=== PATIENT | male | born 1960 | race American Indian/Alaskan Native ===

== ENCOUNTER 2017-11-21 05:43 | Emergency (ER) | payer OTHER ==
[2017-11-21] MEDS ORDERED: ASPIRIN PO ONE (05:58)
[2017-11-21 07:15] LABS: Alanine Aminotransferase 13 units/L (7-56); BUN/Creatinine Ratio 18; Blood Urea Nitrogen 18 mg/dL (9-20); Calcium 8.4 mg/dL (8.4-10.2); Hemolysis Index 46
[2017-11-21 07:27] LABS: Lipase 72 units/L (13-60)
[2017-11-21 08:33] LABS: Basophils % (Auto) 0.4 % (0.0-1.8); Hematocrit 41.6 % (35.5-45.6); Hemoglobin 13.7 gm/dl (11.8-15.2); Lymphocytes # (Auto) 0.8 K/mm3 (1.2-5.4); Lymphocytes % (Auto) 8.7 % (13.4-35.0); Mean Corpuscular HGB Conc 33 % (32-34); Mean Corpuscular Hemoglobin 30 pg (28-32); Mean Corpuscular Volume 92 fl (84-94); Monocytes % (Auto) 11.4 % (0.0-7.3); Platelet Count 219 K/mm3 (140-440); Red Blood Count 4.52 M/mm3 (3.65-5.03); Red Cell Distribution Width 14.7 % (13.2-15.2)
[2017-11-21] MEDS ORDERED: ZOFRAN IV ONE (09:41)
[2017-11-21] MEDS ORDERED: NORMODYNE IV ONE (09:41)
[2017-11-21] MEDS ORDERED: BENADRYL IV ONE (09:41)
[2017-11-21] MEDS ORDERED: THORAZINE 25 MG in NACL 0.9% 50 ML IV ONE (09:41)
[2017-11-21] MEDS ORDERED: NACL 0.9% 1000 ML 1,000 ML IV ONE ×2 (09:41→14:51)
[2017-11-21] MEDS ORDERED: MORPHINE IV ONE (09:44)
--- NOTE | 2017-11-21 09:56 | Emergency Department Report ---
ED Abdominal Pain HPI - General Chief Complaint: Chest Pain Stated Complaint: HICCUPS Time Seen by Provider: 11/21/17 09:26 Source: patient Mode of arrival: Ambulatory Limitations: No Limitations - History of Present Illness Initial Comments: 57-year-old male with a past history of hypertension and chronic hiccups a history of phrenic nerve surgery presents to the hospital with complaints of persistent hiccups, nausea, vomiting, no bowel movement or urine output 1 week. He states he had phrenic nerve surgery 5 years ago in attempt to help his chronic hiccups. Instead this surgery made his hiccups worse. Patient has episodes of intractable hiccups with by mouth intolerance last nausea vomiting and has required hospital admission for the same in the past. For the one week patient has not been able to tolerate any by mouth intake including his medications a presents with elevated blood pressure. Patient complains of epigastric and abdominal pains. Has episodes of belching and has intermittent hiccups in the ED. His Doctors are [facility]. - Related Data Previous Rx's Medication Instructions Recorded Last Taken Type oxyCODONE /ACETAMINOPHEN [Percocet 1 tab PO Q6HR PRN #10 tablet 11/21/17 Unknown Rx 5/325] Allergies Allergy/AdvReac Type Severity Reaction Status Date / Time peanut Allergy Unknown Verified 11/21/17 05:57 ED Review of Systems ROS: Stated complaint: HICCUPS Other details as noted in HPI Comment: All other systems reviewed and negative ED Past Medical Hx - Past Medical History Previous Medical History?: Yes Hx Renal Disease: Yes (kindney failure) Hx Psychiatric Treatment: Yes (SI) Additional medical history: cardiac prob. hep A - Surgical History Past Surgical History?: Yes Additional Surgical History: cardiac stent x1. right ankle screws. phrenic nerve - Social History Smoking Status: Never Smoker Substance Use Type: Marijuana - Medications Home Medications: Home Medications Medication Instructions Recorded Confirmed Last Taken Type oxyCODONE /ACETAMINOPHEN [Percocet 1 tab PO Q6HR PRN #10 tablet 11/21/17 Unknown Rx 5/325] ED Physical Exam - General Limitations: No Limitations - Other Other exam information: General: No limitations, patient is alert in no acute distress Head exam: Atraumatic, normocephalic Eyes exam: Normal appearance ENT: Moist mucous membrane, normal oropharynx Neck exam: Normal inspection, full range of motion, no meningismus nontender Respiratory exam: Clear to auscultation bilateral, no wheezes, rales, crackles Cardiovascular: Normal rate and rhythm, normal heart sounds Abdomen: Soft, nondistended, epigastric tenderness, with normal bowel sounds, no rebound, or guarding Extremity: Full range of motion normal inspection no deformity Back: Normal Inspection, full range of motion, no tenderness Neurologic: Alert, oriented x3, cranial nerves intact, no motor or sensory deficit Psychiatric: normal affect, normal mood Skin: Warm, dry, intact ED Course Vital Signs 11/21/17 11/21/17 11/21/17 05:59 07:52 08:01 Temperature 98.6 F Pulse Rate 99 H 74 Respiratory 20 13 Rate Blood Pressure 204/118 Blood Pressure [Right] O2 Sat by Pulse 96 98 100 Oximetry 11/21/17 11/21/17 11/21/17 08:15 08:31 08:45 Temperature Pulse Rate 87 80 82 Respiratory 12 16 19 Rate Blood Pressure 173/100 201/105 190/108 Blood Pressure [Right] O2 Sat by Pulse 96 97 98 Oximetry 11/21/17 11/21/17 11/21/17 09:01 09:15 09:31 Temperature Pulse Rate 80 81 76 Respiratory 16 21 20 Rate Blood Pressure 165/101 182/104 179/110 Blood Pressure [Right] O2 Sat by Pulse 94 98 96 Oximetry 11/21/17 11/21/17 11/21/17 09:45 10:01 10:15 Temperature Pulse Rate 86 89 80 Respiratory 18 23 19 Rate Blood Pressure 179/110 191/110 180/104 Blood Pressure [Right] O2 Sat by Pulse 96 98 97 Oximetry 11/21/17 11/21/17 11/21/17 10:31 10:45 11:00 Temperature Pulse Rate 74 76 82 Respiratory 10 L 13 10 L Rate Blood Pressure 173/104 191/110 180/109 Blood Pressure [Right] O2 Sat by Pulse 94 99 97 Oximetry 11/21/17 11/21/17 11/21/17 11:15 11:30 11:45 Temperature Pulse Rate 70 69 68 Respiratory 10 L 14 11 L Rate Blood Pressure 180/109 172/97 172/97 Blood Pressure [Right] O2 Sat by Pulse 98 97 97 Oximetry 11/21/17 11/21/17 11/21/17 12:01 12:15 12:31 Temperature Pulse Rate 78 82 94 H Respiratory 20 12 12 Rate Blood Pressure 134/95 134/95 209/121 Blood Pressure [Right] O2 Sat by Pulse 97 100 87 Oximetry 11/21/17 11/21/17 11/21/17 12:45 13:00 13:47 Temperature Pulse Rate 66 78 80 Respiratory 12 12 10 L Rate Blood Pressure 185/108 167/94 Blood Pressure [Right] O2 Sat by Pulse 98 97 98 Oximetry 11/21/17 11/21/17 11/21/17 14:01 14:15 14:31 Temperature Pulse Rate 89 107 H 83 Respiratory 12 13 13 Rate Blood Pressure 167/94 167/94 167/94 Blood Pressure [Right] O2 Sat by Pulse 97 Oximetry 11/21/17 11/21/17 11/21/17 14:45 15:01 15:15 Temperature Pulse Rate 95 H 98 H 89 Respiratory 19 13 10 L Rate Blood Pressure 167/94 167/94 167/94 Blood Pressure [Right] O2 Sat by Pulse 75 L 86 96 Oximetry 11/21/17 11/21/17 11/21/17 15:30 15:45 16:00 Temperature Pulse Rate 61 68 75 Respiratory 12 9 L 10 L Rate Blood Pressure 202/106 Blood Pressure [Right] O2 Sat by Pulse 97 97 99 Oximetry 11/21/17 11/21/17 11/21/17 16:15 16:30 16:45 Temperature Pulse Rate 72 74 83 Respiratory 12 11 L 12 Rate Blood Pressure 186/99 190/104 204/107 Blood Pressure [Right] O2 Sat by Pulse 99 98 96 Oximetry 11/21/17 11/21/17 11/21/17 17:00 17:15 17:30 Temperature Pulse Rate 81 85 91 H Respiratory 12 15 11 L Rate Blood Pressure 183/99 165/96 167/117 Blood Pressure [Right] O2 Sat by Pulse 98 98 97 Oximetry 11/21/17 11/21/17 11/21/17 17:45 18:00 18:15 Temperature Pulse Rate 78 81 83 Respiratory 13 13 12 Rate Blood Pressure 162/95 139/103 139/103 Blood Pressure [Right] O2 Sat by Pulse 97 98 95 Oximetry 11/21/17 11/21/17 11/21/17 18:30 18:45 19:01 Temperature Pulse Rate 87 99 H 91 H Respiratory 13 17 16 Rate Blood Pressure 163/103 180/108 164/116 Blood Pressure [Right] O2 Sat by Pulse 96 97 Oximetry 11/21/17 11/21/17 11/21/17 19:15 19:30 19:45 Temperature Pulse Rate 96 H 93 H 73 Respiratory 17 15 14 Rate Blood Pressure 164/116 193/111 175/109 Blood Pressure [Right] O2 Sat by Pulse 94 90 99 Oximetry 11/21/17 11/21/17 19:54 20:19 Temperature 98.7 F Pulse Rate 85 Respiratory 20 20 Rate Blood Pressure Blood Pressure 165/98 [Right] O2 Sat by Pulse 98 98 Oximetry ED Medical Decision Making - Lab Data Result diagrams: 11/21/17 08:18 11/21/17 06:03 Lab Results 11/21/17 11/21/17 11/21/17 Range/Units 06:03 08:18 08:18 WBC 9.1 (4.5-11.0) K/mm3 RBC 4.52 (3.65-5.03) M/mm3 Hgb 13.7 (11.8-15.2) gm/dl Hct 41.6 (35.5-45.6) % MCV 92 (84-94) fl MCH 30 (28-32) pg MCHC 33 (32-34) % RDW 14.7 (13.2-15.2) % Plt Count 219 (140-440) K/mm3 Lymph % (Auto) 8.7 L (13.4-35.0) % [place] % (Auto) 11.4 H (0.0-7.3) % Eos % (Auto) 0.0 (0.0-4.3) % Baso % (Auto) 0.4 (0.0-1.8) % Lymph # 0.8 L (1.2-5.4) K/mm3 [place] # 1.0 H (0.0-0.8) K/mm3 Eos # 0.0 (0.0-0.4) K/mm3 Baso # 0.0 (0.0-0.1) K/mm3 Seg Neutrophils % 79.5 H (40.0-70.0) % Seg Neutrophils # 7.2 (1.8-7.7) K/mm3 Sodium 131 L (137-145) mmol/L Potassium 2.9 L* (3.6-5.0) mmol/L Chloride 85.2 L (98-107) mmol/L Carbon Dioxide 27 (22-30) mmol/L Anion Gap 22 mmol/L BUN 18 (9-20) mg/dL Creatinine 1.0 (0.8-1.5) mg/dL Estimated GFR > 60 ml/min BUN/Creatinine Ratio 18 % Glucose 166 H (75-100) mg/dL Calcium 8.4 (8.4-10.2) mg/dL Magnesium (1.7-2.3) mg/dL Total Bilirubin 1.90 H (0.1-1.2) mg/dL AST 35 (5-40) units/L ALT 13 (7-56) units/L Alkaline Phosphatase 121 (35-129) units/L Troponin T < 0.010 < 0.010 (0.00-0.029) ng/mL Total Protein 7.8 (6.3-8.2) g/dL Albumin 4.0 (3.9-5) g/dL Albumin/Globulin Ratio 1.1 % Lipase 72 H (13-60) units/L Urine Color (Yellow) Urine Turbidity (Clear) Urine pH (5.0-7.0) Ur Specific [place] (1.003-1.030) Urine Protein (Negative) mg/dL Urine Glucose (UA) (Negative) mg/dL Urine Ketones (Negative) mg/dL Urine Blood (Negative) Urine Nitrite (Negative) Urine Bilirubin (Negative) Urine Urobilinogen (<2.0) mg/dL Ur Leukocyte Esterase (Negative) Urine WBC (Auto) (0.0-6.0) /HPF Urine RBC (Auto) (0.0-6.0) /HPF U Epithel Cells (Auto) (0-13.0) /HPF Urine Mucus /HPF 11/21/17 11/21/17 11/21/17 Range/Units 08:18 12:00 13:57 WBC (4.5-11.0) K/mm3 RBC (3.65-5.03) M/mm3 Hgb (11.8-15.2) gm/dl Hct (35.5-45.6) % MCV (84-94) fl MCH (28-32) pg MCHC (32-34) % RDW (13.2-15.2) % Plt Count (140-440) K/mm3 Lymph % (Auto) (13.4-35.0) % [place] % (Auto) (0.0-7.3) % Eos % (Auto) (0.0-4.3) % Baso % (Auto) (0.0-1.8) % Lymph # (1.2-5.4) K/mm3 [place] # (0.0-0.8) K/mm3 Eos # (0.0-0.4) K/mm3 Baso # (0.0-0.1) K/mm3 Seg Neutrophils % (40.0-70.0) % Seg Neutrophils # (1.8-7.7) K/mm3 Sodium (137-145) mmol/L Potassium (3.6-5.0) mmol/L Chloride (98-107) mmol/L Carbon Dioxide (22-30) mmol/L Anion Gap mmol/L BUN (9-20) mg/dL Creatinine (0.8-1.5) mg/dL Estimated GFR ml/min BUN/Creatinine Ratio % Glucose (75-100) mg/dL Calcium (8.4-10.2) mg/dL Magnesium 1.50 L (1.7-2.3) mg/dL Total Bilirubin (0.1-1.2) mg/dL AST (5-40) units/L ALT (7-56) units/L Alkaline Phosphatase (35-129) units/L Troponin T < 0.010 (0.00-0.029) ng/mL Total Protein (6.3-8.2) g/dL Albumin (3.9-5) g/dL Albumin/Globulin Ratio % Lipase (13-60) units/L Urine Color [place] (Yellow) Urine Turbidity Clear (Clear) Urine pH 6.0 (5.0-7.0) Ur Specific [place] 1.032 H (1.003-1.030) Urine Protein 100 mg/dl (Negative) mg/dL Urine Glucose (UA) Neg (Negative) mg/dL Urine Ketones Tr (Negative) mg/dL Urine Blood Mod (Negative) Urine Nitrite Neg (Negative) Urine Bilirubin Neg (Negative) Urine Urobilinogen 4.0 (<2.0) mg/dL Ur Leukocyte Esterase Neg (Negative) Urine WBC (Auto) 2.0 (0.0-6.0) /HPF Urine RBC (Auto) 5.0 (0.0-6.0) /HPF U Epithel Cells (Auto) < 1.0 (0-13.0) /HPF Urine Mucus Few /HPF - EKG Data -: EKG Interpreted by Me (multiple premature complexes prolonged QT) EKG shows normal: sinus rhythm, axis (qrs 80), QRS complexes (qrsd 81), ST-T waves (no stemi/t inv) Rate: normal - EKG Data When compared to previous EKG there are: changes noted (08/28/10) - Radiology Data Radiology results: report reviewed CT ABDOMEN AND PELVIS WITH CONTRAST INDICATION: Abdominal pain, intractable hiccups, vomiting. COMPARISON: None similar. FINDINGS: Abdomen and pelvis CT performed following intravenous administration of 100 cc of Omnipaque 300. LUNG BASES: Mild to moderate nonspecific distal esophageal wall prominence/thickening, not excluded for gastroesophageal reflux and/or hiatal hernia, amongst others. Few coronary calcifications. ABDOMEN: Liver, spleen, gallbladder, pancreas, adrenals, nonaneurysmal abdominal aorta with atherosclerotic aortoiliac calcifications, IVC and kidneys within normal limits. Small bilateral renal cortical hypodensities/cysts measure up to 0.8 cm. No abdominal ascites or size significant adenopathy. Nonopacified GI tract evaluation limited, though grossly nonobstructive. Normal appendix. PELVIS: Small pelvic free fluid measuring 25HU as on axial image 139, series 2. Urinary bladder decompressed by Rivera catheter and suboptimally assessed. Unremarkable rectosigmoid. No size significant adenopathy. Slight mid to lower lumbar spine degenerative changes without focal aggressive osseous lesions. CONCLUSION: 1. Small pelvic free fluid, an abnormal finding in a male patient, etiology uncertain. 2. Few other findings as distal esophageal thickening, small bilateral renal hypodensities and a Rivera catheter. Thank you for the opportunity to participate in this patient's care. - Medical Decision Making Nausea vomiting with associated electrolyte and EKG changes. 2 Liter normal saline for low sodium and chloride, IV potassium IV magnesium provided. IV labetalol for hypertension secondary to medication noncompliance. Case discussed with hospitalist to consider admission and will dispo. - Differential Diagnosis intractable hiccups, obstruction, dehydration, GERD Critical Care Time: No Critical care attestation.: If time is entered above; I have spent that time in minutes in the direct care of this critically ill patient, excluding procedure time. ED Disposition Clinical Impression: Chronic hiccoughs, Vomiting, HTN (hypertension), Hyponatremia, Hypokalemia, Hypomagnesemia Disposition: OP ADMIT IP TO THIS HOSP Is pt being admited?: Yes Condition: Stable Prescriptions: oxyCODONE /ACETAMINOPHEN [Percocet 5/325] 1 tab PO Q6HR PRN #10 tablet PRN Reason: Pain Time of Disposition: 16:15 (d/w Dr Araiza to dispo pt and determin if admission is needed)
[2017-11-21] MEDS: KCL 10MEQ/100ML 10 MEQ/100 ML BAG IV SCH ×2 (10:22→13:18)
[2017-11-21] MEDS ORDERED: MAGNESIUM SULFATE 2GM/50ML 2 GM/50 ML BAG IV ONE (11:54)
[2017-11-21 13:15] LABS: Bilirubin,Urine NEG (Negative); Blood,Urine MOD (Negative); Color,Urine Amber (Yellow); Mucus,Urine FEW /HPF
--- NOTE | 2017-11-21 14:31 | Cat Scan Report ---
CT ABDOMEN AND PELVIS WITH CONTRAST INDICATION: Abdominal pain, intractable hiccups, vomiting. COMPARISON: None similar. FINDINGS: Abdomen and pelvis CT performed following intravenous administration of 100 cc of Omnipaque 300. LUNG BASES: Mild to moderate nonspecific distal esophageal wall prominence/thickening, not excluded for gastroesophageal reflux and/or hiatal hernia, amongst others. Few coronary calcifications. ABDOMEN: Liver, spleen, gallbladder, pancreas, adrenals, nonaneurysmal abdominal aorta with atherosclerotic aortoiliac calcifications, IVC and kidneys within normal limits. Small bilateral renal cortical hypodensities/cysts measure up to 0.8 cm. No abdominal ascites or size significant adenopathy. Nonopacified GI tract evaluation limited, though grossly nonobstructive. Normal appendix. PELVIS: Small pelvic free fluid measuring 25HU as on axial image 139, series 2. Urinary bladder decompressed by Rivera catheter and suboptimally assessed. Unremarkable rectosigmoid. No size significant adenopathy. Slight mid to lower lumbar spine degenerative changes without focal aggressive osseous lesions. CONCLUSION: 1. Small pelvic free fluid, an abnormal finding in a male patient, etiology uncertain. 2. Few other findings as distal esophageal thickening, small bilateral renal hypodensities and a Rivera catheter. Thank you for the opportunity to participate in this patient's care.
[2017-11-21] MEDS ORDERED: CATAPRES PO ONE (16:17)
[2017-11-21] MEDS ORDERED: CATAPRES ONE (18:41)
--- NOTE | 2017-11-21 19:01 | History and Physical Report ---
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 Pt seen and evaluated in ED and found to have electrolyte imbalance. Pt treated with electrolyte repletion, and IVF resuscitation therapy with resolution of symptoms. Pt medically optimized and back to usual state of health. Pt discharged home and instructed to f/u pcp 1 wk. Pt instructed to resume all prehospital medication. Past History Past Medical History: CAD Past Surgical History: Other (stent, ankle surgery) Social history: , lives with family. denies: smoking, alcohol abuse Family history: hypertension Medications and Allergies Allergies Allergy/AdvReac Type Severity Reaction Status Date / Time peanut Allergy Unknown Verified 11/21/17 05:57 Home Medications Medication Instructions Recorded Confirmed Last Taken Type oxyCODONE /ACETAMINOPHEN [Percocet 1 tab PO Q6HR PRN #10 tablet 11/21/17 Unknown Rx 5/325] Review of Systems Constitutional: other (hiccups, ), no weight loss, no weight gain, no fever, no chills Ears, nose, mouth and throat: no ear pain, no ear discharge, no tinnitis, no decreased hearing, no nose pain Cardiovascular: no chest pain, no orthopnea, no palpitations, no rapid/ irregular heart beat, no edema Respiratory: no cough, no cough with sputum, no excessive sputum, no hemoptysis , no shortness of breath Gastrointestinal: nausea, vomiting, no constipation, no change in bowel habits, no hematemesis, no BRBPR, no melena, no hematochezia, no loss of appetite Genitourinary Male: no hematuria, no flank pain, no discharge, no urinary frequency Rectal: no pain, no incontinence, no bleeding Musculoskeletal: no neck stiffness, no neck pain, no shooting arm pain, no arm numbness/tingling, no low back pain, no shooting leg pain, no leg numbness/ tingling Integumentary: no rash, no pruritis, no redness, no sores, no wounds Neurological: no transient paralysis, no paralysis, no weakness, no parathesias , no numbness, no tingling, no seizures Psychiatric: no anxiety, no memory loss, no change in sleep habits, no sleep disturbances, no insomnia, no hypersomnia Endocrine: no cold intolerance, no heat intolerance, no polyphagia, no excessive thirst, no polydipsia, no polyuria, no nocturia Hematologic/Lymphatic: no easy bruising, no easy bleeding, no lymphadenopathy, no lymphedema Allergic/Immunologic: no urticaria, no allergic rhinitis, no wheezing Exam - Constitutional Vitals: Temp Pulse Resp BP Pulse Ox 98.6 F 87 13 163/103 96 11/21/17 05:59 11/21/17 18:30 11/21/17 18:30 11/21/17 18:30 11/21/17 18:30 General appearance: Present: no acute distress, well-nourished - EENT Eyes: Present: PERRL ENT: hearing intact, clear oral mucosa - Neck Neck: Present: supple, normal ROM - Respiratory Respiratory effort: normal Respiratory: bilateral: CTA - Cardiovascular Heart Sounds: Present: S1 & S2. Absent: rub, click - Extremities Extremities: pulses symmetrical, No edema Peripheral Pulses: within normal limits - Abdominal General gastrointestinal: Present: soft, non-tender, non-distended, normal bowel sounds Male genitourinary: Present: normal - Integumentary Integumentary: Present: clear, warm, dry - Musculoskeletal Musculoskeletal: gait normal, strength equal bilaterally - Psychiatric Psychiatric: appropriate mood/affect, intact judgment & insight - Neurologic Neurologic: CNII-XII intact, moves all extremities Results - Labs CBC & Chem 7: 11/21/17 08:18 11/21/17 06:03 Labs: Abnormal lab results 11/21/17 11/21/17 11/21/17 Range/Units 06:03 08:18 08:18 Lymph % (Auto) 8.7 L (13.4-35.0) % [place] % (Auto) 11.4 H (0.0-7.3) % Lymph # 0.8 L (1.2-5.4) K/mm3 [place] # 1.0 H (0.0-0.8) K/mm3 Seg Neutrophils % 79.5 H (40.0-70.0) % Sodium 131 L (137-145) mmol/L Potassium 2.9 L* (3.6-5.0) mmol/L Chloride 85.2 L (98-107) mmol/L Glucose 166 H (75-100) mg/dL Magnesium 1.50 L (1.7-2.3) mg/dL Total Bilirubin 1.90 H (0.1-1.2) mg/dL Lipase 72 H (13-60) units/L Ur Specific [place] (1.003-1.030) // Range/Units 12:00 Lymph % (Auto) (13.4-35.0) % [place] % (Auto) (0.0-7.3) % Lymph # (1.2-5.4) K/mm3 [place] # (0.0-0.8) K/mm3 Seg Neutrophils % (40.0-70.0) % Sodium (137-145) mmol/L Potassium (3.6-5.0) mmol/L Chloride (98-107) mmol/L Glucose (75-100) mg/dL Magnesium (1.7-2.3) mg/dL Total Bilirubin (0.1-1.2) mg/dL Lipase (13-60) units/L Ur Specific [place] 1.032 H (1.003-1.030) Assessment and Plan - Patient Problems (1) Chronic hiccoughs Status: Acute Plan to address problem: supportive care. f/u pcp 1wk (2) Hypokalemia Status: Acute Plan to address problem: repleted in ED (3) Hypomagnesemia Status: Acute Plan to address problem: repleted in ED
[2017-11-21 20:19] VITALS: BP 165/98
== END 2017-11-21 20:15 | disposition admitted as inpatient to this hospital (09) ==
LOC: ED 05:43
DX: I10 Essential (primary) hypertension (principal); E87.1 Hypo-osmolality and hyponatremia; E83.42 Hypomagnesemia; E87.6 Hypokalemia; R06.6 Hiccough; F12.10 Cannabis abuse, uncomplicated; Z91.010 Allergy to peanuts
CPT/HCPCS: 36415; 74177; 80053; 81001; 83690; 83735; 84484; 85025; 93005; 93010; 96365; 96367; 96375; 99284; J2270; J2405; J3230; J3475; J3480; J7030; Q9967

== ENCOUNTER 2018-01-08 00:35 | Inpatient (IN) | payer OTHER ==
[2018-01-08 02:30] LABS: Eosinophils % (Auto) 1.4 % (0.0-4.3); Hemoglobin 11.7 gm/dl (11.8-15.2); Lymphocytes # (Auto) 0.9 K/mm3 (1.2-5.4); Lymphocytes % (Auto) 33.5 % (13.4-35.0); Mean Corpuscular HGB Conc 34 % (32-34); Mean Corpuscular Hemoglobin 31 pg (28-32); Mean Corpuscular Volume 92 fl (84-94); Monocytes # (Auto) 0.4 K/mm3 (0.0-0.8); Platelet Count 249 K/mm3 (140-440); Red Blood Count 3.81 M/mm3 (3.65-5.03); Red Cell Distribution Width 16.7 % (13.2-15.2)
[2018-01-08 02:34] LABS: Alanine Aminotransferase 9 units/L (7-56); Albumin 4.2 g/dL (3.9-5); BUN/Creatinine Ratio 16; Blood Urea Nitrogen 14 mg/dL (9-20); Calcium 8.4 mg/dL (8.4-10.2); Hemolysis Index 2
--- NOTE | 2018-01-08 02:58 | Emergency Department Report ---
ED Chest Pain HPI - General Chief Complaint: Syncope Stated Complaint: SYNCOPE Time Seen by Provider: 01/08/18 02:40 Source: patient Mode of arrival: Wheelchair Limitations: No Limitations - History of Present Illness Initial Comments: Patient 57-year-old male that presents with chest pain 1 day. Patient states he also had a syncopal episode earlier today. Patient states that the chest pain started after the syncopal episode. Patient states she has passed out many times. Patient states the chest pain is a 6 out of 10. Patient states that the pain is worse with exertion and is better with rest. Patient denies headache or confusion at this time. Patient denies shortness of breath. Patient denies abdominal pain. Patient denies diaphoresis and nausea and vomiting. Patient states that the chest pain started after the syncopal episode. Patient states she has passed out many times. Patient states his significant worked up many times and is secondary to his phrenic nerve disorder. 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 Patient states was episode only lasted a few seconds. Patient states she denied his head. MD Complaint: chest pain -: Sudden Onset: during rest Pain Location: substernal, left chest Pain Radiation: none Severity: severe Severity scale (0 -10): 6 Quality: heaviness, sharp Consistency: constant Improves With: rest Worsens With: exertion re: dyspnea. denies: nausea, vomting, diaphoresis, sense of impending doom Other Symptoms: burping. denies: cough, fever, syncope, rash, acid taste in mouth, leg swelling, palpitations Treatments Prior to Arrival: none Aspirin use within the Past 7 Days: (1) Yes - Related Data On Oral Contraceptives: No Previous Rx's Medication Instructions Recorded Last Taken Type oxyCODONE /ACETAMINOPHEN [Percocet 1 tab PO Q6HR PRN #10 tablet 11/21/17 Unknown Rx 5/325] Allergies Allergy/AdvReac Type Severity Reaction Status Date / Time peanut Allergy Unknown Verified 11/21/17 05:57 Heart Score - HEART Score History: Slightly suspicious EKG: Normal Age: 45-65 Risk factors: > 3 risk factors or hx of atherosclerotic disease Troponin: < normal limit HEART Score: 3 ED Review of Systems ROS: Stated complaint: SYNCOPE Other details as noted in HPI Constitutional: denies: chills, fever Eyes: denies: eye pain, eye discharge, vision change ENT: denies: ear pain, throat pain Respiratory: shortness of breath. denies: cough, wheezing Cardiovascular: chest pain. denies: palpitations Endocrine: no symptoms reported Gastrointestinal: denies: abdominal pain, nausea, diarrhea Genitourinary: denies: urgency, dysuria Musculoskeletal: denies: back pain, joint swelling, arthralgia Skin: denies: rash, lesions Neurological: denies: headache, weakness, paresthesias Psychiatric: denies: anxiety, depression Hematological/Lymphatic: denies: easy bleeding, easy bruising ED Past Medical Hx - Past Medical History Previous Medical History?: Yes Hx Hypertension: Yes Hx Heart Attack/AMI: Yes Hx GERD: Yes Hx Renal Disease: Yes (kindney failure) Hx Psychiatric Treatment: Yes (SI) Hx Asthma: Yes Additional medical history: cardiac prob. hep A, Sleep apnea - Surgical History Past Surgical History?: Yes Additional Surgical History: cardiac stent x1. right ankle screws. phrenic nerve - Social History Smoking Status: Former Smoker Substance Use Type: Alcohol, Marijuana - Medications Home Medications: Home Medications Medication Instructions Recorded Confirmed Last Taken Type oxyCODONE /ACETAMINOPHEN [Percocet 1 tab PO Q6HR PRN #10 tablet 11/21/17 Unknown Rx 5/325] ED Physical Exam - General Limitations: No Limitations General appearance: alert, in no apparent distress - Head Head exam: Present: atraumatic, normocephalic - Eye Eye exam: Present: normal appearance - ENT ENT exam: Present: mucous membranes moist - Neck Neck exam: Present: normal inspection - Respiratory Respiratory exam: Present: normal lung sounds bilaterally. Absent: respiratory distress - Cardiovascular Cardiovascular Exam: Present: regular rate, normal rhythm. Absent: systolic murmur, diastolic murmur, rubs, gallop - GI/Abdominal GI/Abdominal exam: Present: soft, normal bowel sounds - Rectal Rectal exam: Present: deferred - Extremities Exam Extremities exam: Present: normal inspection - Back Exam Back exam: Present: normal inspection - Neurological Exam Neurological exam: Present: alert, oriented X3 - Psychiatric Psychiatric exam: Present: normal affect, normal mood - Skin Skin exam: Present: warm, dry, intact, normal color. Absent: rash ED Course Vital Signs 01/08/18 01/08/18 01/08/18 00:36 00:58 02:45 Temperature 98.2 F 98.2 F Pulse Rate 71 87 88 Respiratory 14 16 Rate Blood Pressure 179/100 179/100 201/110 O2 Sat by Pulse 96 97 99 Oximetry 01/08/18 01/08/18 01/08/18 03:13 03:35 04:30 Temperature Pulse Rate 76 78 95 H Respiratory 22 Rate Blood Pressure 215/128 201/117 190/116 O2 Sat by Pulse 94 Oximetry 01/08/18 01/08/18 04:31 05:30 Temperature Pulse Rate 76 84 Respiratory 23 Rate Blood Pressure 214/124 160/92 O2 Sat by Pulse 93 Oximetry - Reevaluation(s) Reevaluation #1: patient resting in bed. Discussed results with patient. Blood pressure still elevated after 5 of Lopressor. We'll give patient hydralazine. 01/08/18 03:32 Reevaluation #2: Patient's blood pressure remains elevated. We'll give another 10 mg of hydralazine. And recheck. Discussed plan of care with patient. Patient agrees with plan of care and admission. We'll consult hospitalist for admission. 01/08/18 04:30 Blood pressure better. Patient admitted to the hospitalist service. 01/08/18 05:10 - Consultations Consultation #1: Hospitalist consulted for admission. Hospitalist given full report. Hospitalist agrees to admit. Hospitalist to assume care. 01/08/18 04:31 LUIS score - Luis Score Age > 65: (0) No Aspirin use within the Past 7 Days: (1) Yes 3 or more CAD Risk Factors: (0) No 2 or more Angina events in past 24 hrs: (1) Yes Known CAD with more than 50% Stenosis: (1) Yes Elevated Cardiac Markers: (0) No ST Deviation Greater than 0.5mm: (0) No LUIS Score: 3 ED Medical Decision Making - Lab Data Result diagrams: 01/08/18 01:40 01/08/18 01:40 - EKG Data -: EKG Interpreted by Me EKG shows normal: sinus rhythm, axis, intervals, QRS complexes, ST-T waves Rate: normal - EKG Data Interpretation: other (pac's noted. ) - Radiology Data Radiology results: report reviewed FINDINGS: Skull and scalp: Normal. Paranasal sinuses: Normal. Ventricles and subarachnoid spaces: There is mild central and cortical atrophy. There is no hydrocephalus or asymmetry.. Cerebrum: No evidence of hemorrhage, acute infarction or mass. There is chronic deep white matter ischemic gliosis. 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 Cerebellum and brainstem : No evidence of hemorrhage, acute infarction or mass. Vasculature: Normal. Comments: None. IMPRESSION: There are chronic involutional and ischemic changes. There is no hemorrhage, edema, mass, mass effect or midline shift. - Medical Decision Making Patient is a 57-year-old male presents to emergency room with chest pain shortness of breath 1 day. Patient is not hypoxic and not tachycardic. Patient's blood pressure is very high and given multiple doses of blood pressure medications. Patient will be admitted to the hospitalist service for further evaluation and treatment. - Differential Diagnosis cp. sob. acs. gerd. syncope Critical care attestation.: If time is entered above; I have spent that time in minutes in the direct care of this critically ill patient, excluding procedure time. ED Disposition Clinical Impression: Shortness of breath, Malignant hypertension Chest pain Qualifiers: Chest pain type: unspecified Qualified Code(s): R07.9 - Chest pain, unspecified Syncope Qualifiers: Syncope type: unspecified Qualified Code(s): R55 - Syncope and collapse Disposition: DC-09 OP ADMIT IP TO THIS HOSP Is pt being admited?: Yes Does the pt Need Aspirin: No Condition: Serious Time of Disposition: 04:29
[2018-01-08] MEDS ORDERED: LOPRESSOR IV ONE (03:03)
[2018-01-08] MEDS ORDERED: ASPIRIN ONE (03:18)
[2018-01-08] MEDS ORDERED: ASPIRIN PO ONE (03:20)
[2018-01-08] MEDS ORDERED: APRESOLINE ONE (03:30)
[2018-01-08] MEDS ORDERED: APRESOLINE IV ONE ×2 (03:31→04:24)
--- NOTE | 2018-01-08 04:21 | Cat Scan Report ---
FINAL REPORT PROCEDURE: CT HEAD/BRAIN WO CON TECHNIQUE: Computerized tomography of the head was performed without contrast material. HISTORY: syncope COMPARISON: No prior studies are available for comparison. FINDINGS: Skull and scalp: Normal. Paranasal sinuses: Normal. Ventricles and subarachnoid spaces: There is mild central and cortical atrophy. There is no hydrocephalus or asymmetry.. Cerebrum: No evidence of hemorrhage, acute infarction or mass. There is chronic deep white matter ischemic gliosis. 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 Cerebellum and brainstem: No evidence of hemorrhage, acute infarction or mass. Vasculature: Normal. Comments: None. IMPRESSION: There are chronic involutional and ischemic changes. There is no hemorrhage, edema, mass, mass effect or midline shift.
[2018-01-08] MEDS ORDERED: ATIVAN ONE (04:45)
[2018-01-08] MEDS ORDERED: ATIVAN IV ONE (04:51)
[2018-01-08] MEDS ORDERED: TYLENOL PO PRN (06:20)
[2018-01-08] MEDS ORDERED: SODIUM CHLORIDE FLUSH SYRINGE 10 ML IV PRN (06:20)
[2018-01-08] MEDS ORDERED: PERCOCET 5/325 PO PRN (06:20)
[2018-01-08] MEDS ORDERED: ATIVAN IV PRN ×2 (06:20)
[2018-01-08] MEDS ORDERED: ZOFRAN IV PRN (06:20)
--- NOTE | 2018-01-08 06:23 | History and Physical Report ---
History of Present Illness Date of examination: 01/08/18 History of present illness: 57-year-old man with a history of hypertension, coronary artery disease comes to the emergency room because his got sick and she is being evaluated. While in the emergency room he had a syncopal episode and shortly after complaining of chest pain in the epigastric which she describes as a dull pain, intermittent in nature lasting for a few minutes area, intensity 4/10, not radiation any Exacerbating or Relieving Factors. Aggressive shortness breath, no nausea vomiting, diaphoresis or palpitation Review of systems Constitutional: no weight loss, chills, fever Ears, eyes, nose, mouth and throat: no nasal congestion, no nasal discharge, no sinus pressure, no vision change, no red eye. Neck: No neck pain or rigidity. Cardiovascular: no palpitations Respiratory: no cough, +shortness of breath Gastrointestinal: no abdominal pain hematochezia Genitourinary : no frequency , no hematuria Musculoskeletal: no joint swelling or muscle ache Integumentary: no rash, no pruritis Neurological: no parathesias, no numbness, no focal weakness Endocrine: no cold or heat intolerance, no polyuria or polydipsia Hematologic/Lymphatic: no easy bruising, no easy bleeding, no gland swelling Allergic/Immunologic: no urticaria, no angioedema. PAST MEDICAL HISTORYhypertension, coronary artery disease PAST SURGICAL HISTORY: Phrenic nerve surgery SOCIAL HISTORY: Drinks alcohol a lot, no drugs, tobacco FAMILY HISTORY: Hypertension Medications and Allergies Allergies Allergy/AdvReac Type Severity Reaction Status Date / Time peanut Allergy Unknown Verified 11/21/17 05:57 Home Medications Medication Instructions Recorded Confirmed Last Taken Type oxyCODONE /ACETAMINOPHEN [Percocet 1 tab PO Q6HR PRN #10 tablet 11/21/17 Unknown Rx 5/325] Active Meds: Active Medications Lorazepam (Ativan) 2 mg IV Q1HR PRN PRN Reason: CIWA-Ar 8-15 Lorazepam (Ativan) 4 mg IV Q1HR PRN PRN Reason: CIWA-Ar 16-25 Exam - Physical Exam Narrative exam: Gen. appearance: Patient lying in bed, no apparent distress HEENT: Normocephalic, atraumatic, pupils equally round and reactive to light, extraocular movement intact, and no sclericterus,. No JVD or thyromegaly or nodule,neck supple, no carotid bruit ,mucous membranes moist, no exudate or erythema Heart: S1, S2, regular rate and rhythm Lungs: Clear bilaterally, breathing comfortable Abdomen: Positive bowel sounds, non-tender, nondistended, no organomegaly Extremity:no edema cyanosis, clubbing Skin: no rash, dry, warm Neuro: Oriented 3, cranial nerves II-12 intact, speech is fluent, motor and sensory intact - Constitutional Vitals: Temp Pulse Resp BP Pulse Ox 98.2 F 84 23 160/92 93 01/08/18 00:58 01/08/18 05:30 01/08/18 05:30 01/08/18 05:30 01/08/18 05:30 Results - Labs CBC & Chem 7: 01/08/18 01:40 01/08/18 01:40 Labs: Abnormal lab results 01/08/18 01/08/18 Range/Units 01:40 01:40 WBC 2.7 L (4.5-11.0) K/mm3 Hgb 11.7 L (11.8-15.2) gm/dl Hct 35.0 L (35.5-45.6) % RDW 16.7 H (13.2-15.2) % Holmes % (Auto) 14.0 H (0.0-7.3) % Lymph # 0.9 L (1.2-5.4) K/mm3 Seg Neutrophils # 1.3 L (1.8-7.7) K/mm3 Plasma/Serum Alcohol 0.21 H (0-0.07) % - Imaging and Cardiology CT Scan - head: report reviewed Assessment and Plan Assessment Unstable angina Syncope Coronary artery disease Hypertension Alcohol abuse Plan Admit to medicine Check cardiac enzymes, stress test Obtain carotid Doppler, echo, d-dimer Start CIWA protocol with IV ativan Continue outpatient medications DVT prophalaxis
[2018-01-08 07:45] LABS: Creatine Kinase MB 5.6 ng/mL (0.0-4.0)
[2018-01-08] MEDS ORDERED: LEXISCAN IV ONE ×2 (08:18)
[2018-01-08] MEDS ORDERED: LOVENOX SUB-Q SCH (10:00)
--- NOTE | 2018-01-08 13:52 | Event Note ---
Date: 01/08/18 Patient seen and examined. In the lab studies noted with high blood alcohol ocntents elevated BP mnoted. Commence pt on Amlodipine in adition
[2018-01-08] MEDS ORDERED: APRESOLINE IV SCH (15:00)
[2018-01-08] MEDS: APRESOLINE IV PRN (16:33)
--- NOTE | 2018-01-08 20:05 | Treadmill Report ---
MYOCARDIAL PERFUSION IMAGING STUDY Resting images revealed homogeneous radioisotope activity. There was also some uptake noted in the gut making diminished counts in the inferior wall. On post-Lexiscan images, again there was gut uptake and liver uptake noted making decreased count in the inferior wall. On gated scan, the ejection fraction was noted to be normal at 62%. There is no segmental motion abnormality. IMPRESSION: This test is negative for ischemia. Ejection fraction on gated scan was noted to be 62%. JOB# [id number] KR/NTS
[2018-01-08] MEDS: SODIUM CHLORIDE FLUSH SYRINGE 10 ML IV SCH ×2 (21:49→23:21)
[2018-01-08] MEDS: LOVENOX SUB-Q SCH (23:21)
[2018-01-09] MEDS: APRESOLINE IV PRN ×3 (00:53→14:03)
[2018-01-09 04:20] LABS: Bilirubin,Urine NEG (Negative); Blood,Urine NEG (Negative); Color,Urine Yellow (Yellow); Protein,Urine <15 mg/dL mg/dL (Negative); RBC,Urine < 1.0 /HPF (0.0-6.0); WBC,Urine < 1.0 /HPF (0.0-6.0)
[2018-01-09 04:30] LABS: Amphetamine Screen,Urine PRESUMPTIVE NEGATIVE; Benzodiazepines Screen,Urine PRESUMPTIVE NEGATIVE; Cocaine Screen,Urine PRESUMPTIVE NEGATIVE; Methadone Screen,Urine PRESUMPTIVE NEGATIVE; Opiate Screen,Urine PRESUMPTIVE NEGATIVE
[2018-01-09 04:49] LABS: Cannabinoid Screen,Urine PRESUMPTIVE POSITIVE
[2018-01-09 06:45] LABS: Hemoglobin 12.7 gm/dl (11.8-15.2); Mean Corpuscular HGB Conc 34 % (32-34); Mean Corpuscular Hemoglobin 31 pg (28-32); Mean Corpuscular Volume 90 fl (84-94); Platelet Count 232 K/mm3 (140-440); Red Blood Count 4.11 M/mm3 (3.65-5.03); Red Cell Distribution Width 16.7 % (13.2-15.2)
[2018-01-09 07:08] LABS: BUN/Creatinine Ratio 19; Blood Urea Nitrogen 15 mg/dL (9-20); Calcium 8.1 mg/dL (8.4-10.2); Hemolysis Index 2
[2018-01-09 09:43] LABS: Eosinophils % (Manual) 0 % (0.0-4.3); Total Cells Counted 100
[2018-01-09 09:44] LABS: Platelet Estimate Cons; RBC Morphology Normal
[2018-01-09] MEDS: LOVENOX SUB-Q SCH (09:46)
[2018-01-09] MEDS: SODIUM CHLORIDE FLUSH SYRINGE 10 ML IV SCH (09:47)
[2018-01-09] MEDS ORDERED: NORVASC PO SCH ×2 (10:00)
[2018-01-09] MEDS ORDERED: LOPRESSOR PO SCH (10:00)
[2018-01-09] MEDS ORDERED: ZESTRIL PO SCH ×2 (10:00)
[2018-01-09] MEDS ORDERED: PNEUMOVAX 23 IM ONE (12:00)
--- NOTE | 2018-01-09 13:46 | Progress Note ---
Subjective Date of service: 01/09/18 Objective - Constitutional Vitals: Vital Signs - 12hr 01/09/18 01/09/18 01/09/18 05:43 06:20 08:43 Temperature 98.8 F 97.9 F Pulse Rate 95 H 74 Respiratory 20 20 Rate Blood Pressure 173/101 173/103 Blood Pressure 120/79 [Left] O2 Sat by Pulse 97 100 Oximetry 01/09/18 01/09/18 01/09/18 08:50 08:58 09:45 Temperature Pulse Rate 95 H 95 H Respiratory 18 Rate Blood Pressure 171/100 171/100 Blood Pressure [Left] O2 Sat by Pulse 97 95 Oximetry 01/09/18 09:46 Temperature Pulse Rate 95 H Respiratory Rate Blood Pressure 171/100 Blood Pressure [Left] O2 Sat by Pulse Oximetry - Labs CBC & Chem 7: 01/09/18 06:14 01/09/18 06:14 Labs: Abnormal lab results 01/09/18 01/09/18 Range/Units 06:14 06:14 WBC 4.3 L (4.5-11.0) K/mm3 RDW 16.7 H (13.2-15.2) % Seg Neuts % (Manual) 77.0 H (40.0-70.0) % Lymphocytes # (Manual) 0.6 L (1.2-5.4) K/mm3 Potassium 3.2 L (3.6-5.0) mmol/L Calcium 8.1 L (8.4-10.2) mg/dL
[2018-01-09 16:47] VITALS: BP 135/87
--- NOTE | 2018-01-09 21:09 | Discharge Summary ---
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 Condition: Serious Pertinent studies: CT scan of the head was normal, stress test that was normal. Procedures: none Hospital course: 57-year-old man with a history of hypertension, coronary artery disease comes to the emergency room because his got sick and she is being evaluated. While in the emergency room he had a syncopal episode and shortly after complaining of chest pain in the epigastric which he describes as a dull pain, intermittent in nature lasting for a few minutes area, intensity 4/10, not radiation any Exacerbating or Relieving Factors. Has associated Shortness breath, no nausea vomiting, diaphoresis or palpitation. Has a history of increased alcohol ingestion. Drinks about 6 packs a day. On admission the patient was commenced on oxygen nitroglycerin and aspirin and morphine. Stress test was done. This was unremarkable for any ischemic event. Patient admitted to have very elevated blood pressure. Commenced on oral antihypertensives as patient has been noncompliant with his own. Blood pressure continued to be elevated until to this morning when he was treated in the 180s. However patient was advised that he has to hold onto his blood pressure was better controlled. He was advised against alcohol ingestion. However he's had AGAINST MEDICAL ADVICE this evening. Disposition: -07 LEFT AGAINST MED ADVICE Core Measure Documentation - Palliative Care Palliative Care/ Comfort Measures: Not Applicable - Core Measures Any of the following diagnoses?: none Exam - Physical Exam Narrative exam: Physical examination was in the morning. Patient's leaving AGAINST MEDICAL ADVICE Constitutional: Well-nourished well-developed. In no distress Head: Normocephalic atraumatic Eyes: Pupils are equal round and reactive to light Nose: No enlarged turbinates, no septal deviation. Mouth: Moist mucous membranes. Neck: Supple no thyromegaly. No bruit. No JVD Heart: Regular rate and rhythm, S1-S2 abnormal. No rubs murmurs or gallop Lungs: Clear to auscultation bilaterally no rales or rhonchi Abdomen: Soft, nontender. Bowel sound are present. Extremities: No edema no cyanosis and no clubbing. Neuro: Alert oriented Oriented x3. No focal sensory or motor deficit. Skin: No rashes no hyperemic spots Psychiatry: Euthymic. Calm. - Constitutional Vitals: Temp Pulse Resp BP Pulse Ox 98.6 F 88 20 135/87 100 01/09/18 17:17 01/09/18 17:17 01/09/18 17:17 01/09/18 17:17 01/09/18 15:39 Plan Activity: fall precautions Weight Bearing Status: Weight Bear as Tolerated Diet: low cholesterol, low salt Forms: AMA Form Prescriptions: amLODIPine [Norvasc] 10 mg PO DAILY #30 tab Aspirin 81 mg PO DAILY #30 tab.chew hydrALAZINE [Apresoline TAB] 100 mg PO BID #60 tablet Lisinopril [Zestril TAB] 40 mg PO QDAY #30 tablet Metoprolol [Lopressor TAB] 100 mg PO BID #60 tablet
== END 2018-01-09 20:05 | disposition left against medical advice (07) | DRG 312 ==
LOC: ED 00:35 → 4A 09:32
PROVIDERS: ADMIT Internal Medicine; ATTEND Family Medicine
PROC: 3E0234Z Introduction of Serum, Toxoid and Vaccine into Muscle, Percutaneous Approach (ICD-10-PCS; principal; 2018-01-09)
DX: R55 Syncope and collapse (principal); I25.110 Atherosclerotic heart disease of native coronary artery with unstable angina pectoris; F10.10 Alcohol abuse, uncomplicated; Y90.0 Blood alcohol level of less than 20 mg/100 ml; R07.89 Other chest pain; Z53.21 Procedure and treatment not carried out due to patient leaving prior to being seen by health care provider; I10 Essential (primary) hypertension; K21.9 Gastro-esophageal reflux disease without esophagitis; J45.909 Unspecified asthma, uncomplicated; F12.90 Cannabis use, unspecified, uncomplicated; Z91.010 Allergy to peanuts; I25.2 Old myocardial infarction; Z87.891 Personal history of nicotine dependence; Z95.5 Presence of coronary angioplasty implant and graft; Z82.49 Family history of ischemic heart disease and other diseases of the circulatory system; Z23 Encounter for immunization
CPT/HCPCS: 36415; 70450; 78452; 80048; 80053; 80307; 80320; 81001; 82550; 82553; 84484; 85007; 85025; 85379; 90732; 93005; 93010; 93017; 99406; A9502; G0480; J0360; J1650; J2060; J2785

== ENCOUNTER 2018-07-17 21:59 | Inpatient (IN) | payer SELFPAY ==
[2018-07-17] MEDS ORDERED: BABY ASPIRIN PO ONE (22:08)
[2018-07-17] MEDS ORDERED: NACL 0.9% 1000 ML 1,000 ML IV ONE ×2 (22:08→23:54)
--- NOTE | 2018-07-17 22:08 | Emergency Department Report ---
ED Chest Pain HPI - General Chief Complaint: Chest Pain Stated Complaint: CHEST PAIN Time Seen by Provider: 07/17/18 22:07 Source: patient, EMS Mode of arrival: Stretcher Limitations: No Limitations - History of Present Illness MD Complaint: chest pain -: Sudden, This evening Onset: during rest Pain Location: left chest Pain Radiation: none Severity: severe Severity scale (0 -10): 7 Quality: tightness, heaviness Consistency: constant Improves With: nothing Worsens With: nothing Context: other (Patient drank alcohol tonight.) re: nausea, vomting Treatments Prior to Arrival: none Aspirin use within the Past 7 Days: (1) Yes - Related Data On Oral Contraceptives: No Previous Rx's Medication Instructions Recorded Last Taken Type Aspirin 81 mg PO DAILY #30 tab.chew 01/09/18 07/16/18 12:00 Rx Lisinopril [Zestril TAB] 40 mg PO QDAY #30 tablet 01/09/18 07/16/18 12:00 Rx Metoprolol [Lopressor TAB] 100 mg PO BID #60 tablet 01/09/18 07/16/18 12:00 Rx amLODIPine [Norvasc] 10 mg PO DAILY #30 tab 01/09/18 07/16/18 12:00 Rx hydrALAZINE [Apresoline TAB] 100 mg PO BID #60 tablet 01/09/18 07/16/18 12:00 Rx 100mg Allergies Allergy/AdvReac Type Severity Reaction Status Date / Time peanut Allergy Unknown Verified 11/21/17 05:57 Heart Score - HEART Score History: Moderately suspicious EKG: Non-specific Age: 45-65 Risk factors: 1-2 risk factors Troponin: < normal limit HEART Score: 4 - Critical Actions Critical Actions: 4-6 pts:12-16.6% risk of adverse cardiac event. Should be admitted ED Review of Systems ROS: Stated complaint: CHEST PAIN Other details as noted in HPI Comment: All other systems reviewed and negative Constitutional: denies: chills, fever Eyes: denies: eye pain, eye discharge, vision change ENT: denies: ear pain, throat pain Respiratory: denies: cough, shortness of breath, wheezing Cardiovascular: chest pain. denies: palpitations Endocrine: no symptoms reported Gastrointestinal: nausea, vomiting. denies: abdominal pain, diarrhea Genitourinary: denies: urgency, dysuria Musculoskeletal: denies: back pain, joint swelling, arthralgia Skin: denies: rash, lesions Neurological: denies: headache, weakness, paresthesias Psychiatric: denies: anxiety, depression Hematological/Lymphatic: denies: easy bleeding, easy bruising ED Past Medical Hx - Past Medical History Hx Hypertension: Yes Hx Heart Attack/AMI: Yes Hx GERD: Yes Hx Renal Disease: Yes (kindney failure) Hx Psychiatric Treatment: Yes (SI) Hx Asthma: Yes Additional medical history: cardiac prob. hep A, Sleep apnea - Surgical History Additional Surgical History: cardiac stent x1. right ankle screws. phrenic nerve - Social History Smoking Status: Former Smoker - Medications Home Medications: Home Medications Medication Instructions Recorded Confirmed Last Taken Type Aspirin 81 mg PO DAILY #30 tab.chew 01/09/18 07/18/18 07/16/18 12:00 Rx Lisinopril [Zestril TAB] 40 mg PO QDAY #30 tablet 01/09/18 07/18/18 07/16/18 12:00 Rx Metoprolol [Lopressor TAB] 100 mg PO BID #60 tablet 01/09/18 07/18/18 07/16/18 12:00 Rx amLODIPine [Norvasc] 10 mg PO DAILY #30 tab 01/09/18 07/18/18 07/16/18 12:00 Rx hydrALAZINE [Apresoline TAB] 100 mg PO BID #60 tablet 01/09/18 07/18/18 07/16/18 12:00 Rx 100mg ED Physical Exam - General Limitations: No Limitations General appearance: alert, in no apparent distress - Head Head exam: Present: atraumatic, normocephalic, normal inspection - Eye Eye exam: Present: normal appearance, PERRL, EOMI Pupils: Present: normal accommodation - ENT ENT exam: Present: normal exam, normal orophraynx, mucous membranes moist - Neck Neck exam: Present: normal inspection, full ROM. Absent: tenderness - Respiratory Respiratory exam: Present: normal lung sounds bilaterally. Absent: respiratory distress, wheezes - Cardiovascular Cardiovascular Exam: Present: regular rate, normal rhythm. Absent: systolic murmur, diastolic murmur, rubs, gallop - GI/Abdominal GI/Abdominal exam: Present: soft, normal bowel sounds. Absent: distended, tenderness, guarding, rebound - Rectal Rectal exam: Present: deferred - Extremities Exam Extremities exam: Present: normal inspection, full ROM, normal capillary refill. Absent: tenderness - Back Exam Back exam: Present: normal inspection, full ROM. Absent: tenderness, CVA tenderness (R), CVA tenderness (L) - Neurological Exam Neurological exam: Present: alert, oriented X3, CN II-XII intact - Psychiatric Psychiatric exam: Present: normal affect, normal mood - Skin Skin exam: Present: warm, dry, intact, normal color. Absent: rash ED Course Vital Signs 07/17/18 07/17/18 07/17/18 22:01 22:04 22:16 Temperature 98 F Pulse Rate 97 H 101 H 85 Respiratory 18 23 Rate Blood Pressure 194/108 194/108 Blood Pressure 194/108 [Right] O2 Sat by Pulse 99 96 Oximetry 07/17/18 07/17/18 07/17/18 22:30 22:46 23:00 Temperature Pulse Rate 88 91 H 80 Respiratory 13 16 18 Rate Blood Pressure 170/109 171/99 179/89 Blood Pressure [Right] O2 Sat by Pulse 97 89 97 Oximetry 07/17/18 07/17/18 07/17/18 23:16 23:30 23:45 Temperature Pulse Rate 81 77 73 Respiratory 21 21 21 Rate Blood Pressure 136/84 128/85 123/80 Blood Pressure [Right] O2 Sat by Pulse 100 98 98 Oximetry 07/17/18 07/18/18 07/18/18 23:48 00:00 00:15 Temperature Pulse Rate 74 74 86 Respiratory 20 20 14 Rate Blood Pressure 123/80 124/78 160/103 Blood Pressure [Right] O2 Sat by Pulse 97 97 100 Oximetry 07/18/18 07/18/18 07/18/18 00:30 00:46 01:00 Temperature Pulse Rate 86 87 83 Respiratory 16 19 10 L Rate Blood Pressure 170/110 170/110 158/100 Blood Pressure [Right] O2 Sat by Pulse 99 100 99 Oximetry 07/18/18 07/18/18 07/18/18 01:16 01:30 02:04 Temperature Pulse Rate 83 79 Respiratory 20 15 Rate Blood Pressure 158/100 152/104 152/104 Blood Pressure [Right] O2 Sat by Pulse 98 99 97 Oximetry 07/18/18 07/18/18 07/18/18 02:16 02:30 02:46 Temperature Pulse Rate 92 H 92 H 99 H Respiratory 16 18 14 Rate Blood Pressure 152/104 145/94 145/94 Blood Pressure [Right] O2 Sat by Pulse 100 98 99 Oximetry 07/18/18 07/18/18 07/18/18 03:00 03:16 03:30 Temperature Pulse Rate 102 H 102 H 108 H Respiratory 17 21 23 Rate Blood Pressure 124/69 124/69 122/72 Blood Pressure [Right] O2 Sat by Pulse 99 100 99 Oximetry 07/18/18 07/18/18 07/18/18 03:56 04:00 04:16 Temperature Pulse Rate 111 H 107 H 107 H Respiratory 17 16 22 Rate Blood Pressure 122/72 122/72 122/72 Blood Pressure [Right] O2 Sat by Pulse 99 99 Oximetry 07/18/18 07/18/18 07/18/18 04:30 04:46 05:00 Temperature Pulse Rate 99 H 104 H 100 H Respiratory 24 22 17 Rate Blood Pressure 124/72 124/72 124/80 Blood Pressure [Right] O2 Sat by Pulse 95 97 96 Oximetry 07/18/18 07/18/18 07/18/18 05:16 05:30 05:46 Temperature Pulse Rate 102 H 99 H 109 H Respiratory 20 15 17 Rate Blood Pressure 124/72 128/80 128/80 Blood Pressure [Right] O2 Sat by Pulse 96 98 97 Oximetry 07/18/18 06:00 Temperature Pulse Rate 99 H Respiratory 12 Rate Blood Pressure 128/80 Blood Pressure [Right] O2 Sat by Pulse 100 Oximetry - Reevaluation(s) Reevaluation #1: 07/18/18 02:19 Patient said his chest pain has resolved. - Consultations Consultation #1: 07/18/18 02:50 Patient was signed out to Dr Baer to admit patient to Dr Fuentes. LUIS score - Luis Score Age > 65: (0) No Aspirin use within the Past 7 Days: (1) Yes 3 or more CAD Risk Factors: (0) No 2 or more Angina events in past 24 hrs: (1) Yes Known CAD with more than 50% Stenosis: (1) Yes Elevated Cardiac Markers: (0) No ST Deviation Greater than 0.5mm: (0) No LUIS Score: 3 ED Medical Decision Making - Lab Data Result diagrams: 07/18/18 13:11 02/14/19 06:19 Lab Results 07/17/18 07/17/18 07/17/18 Range/Units 22:17 22:28 22:28 WBC 4.0 L (4.5-11.0) K/mm3 RBC 3.69 (3.65-5.03) M/mm3 Hgb 11.6 L (11.8-15.2) gm/dl Hct 34.4 L (35.5-45.6) % MCV 93 (84-94) fl MCH 31 (28-32) pg MCHC 34 (32-34) % RDW 14.9 (13.2-15.2) % Plt Count 230 (140-440) K/mm3 Lymph % (Auto) 27.8 (13.4-35.0) % [place] % (Auto) 16.0 H (0.0-7.3) % Eos % (Auto) 1.1 (0.0-4.3) % Baso % (Auto) 1.4 (0.0-1.8) % Lymph # 1.1 L (1.2-5.4) K/mm3 [place] # 0.6 (0.0-0.8) K/mm3 Eos # 0.0 (0.0-0.4) K/mm3 Baso # 0.1 (0.0-0.1) K/mm3 Seg Neutrophils % 53.7 (40.0-70.0) % Seg Neutrophils # 2.1 (1.8-7.7) K/mm3 PT 12.2 (12.2-14.9) Sec. INR 0.87 (0.87-1.13) APTT 28.3 (24.2-36.6) Sec. D-Dimer 424.11 H (0-234) ng/mlDDU Sodium (137-145) mmol/L Potassium (3.6-5.0) mmol/L Chloride (98-107) mmol/L Carbon Dioxide (22-30) mmol/L Anion Gap mmol/L BUN (9-20) mg/dL Creatinine (0.8-1.5) mg/dL Estimated GFR ml/min BUN/Creatinine Ratio % Glucose (75-100) mg/dL POC Glucose 82 (70-105) Calcium (8.4-10.2) mg/dL Magnesium (1.7-2.3) mg/dL Total Bilirubin (0.1-1.2) mg/dL AST (5-40) units/L ALT (7-56) units/L Alkaline Phosphatase (35-129) units/L Troponin T (0.00-0.029) ng/mL Total Protein (6.3-8.2) g/dL Albumin (3.9-5) g/dL Albumin/Globulin Ratio % Lipase (13-60) units/L Urine Color (Yellow) Urine Turbidity (Clear) Urine pH (5.0-7.0) Ur Specific [place] (1.003-1.030) Urine Protein (Negative) mg/dL Urine Glucose (UA) (Negative) mg/dL Urine Ketones (Negative) mg/dL Urine Blood (Negative) Urine Nitrite (Negative) Urine Bilirubin (Negative) Urine Urobilinogen (<2.0) mg/dL Ur Leukocyte Esterase (Negative) Urine WBC (Auto) (0.0-6.0) /HPF Urine RBC (Auto) (0.0-6.0) /HPF U Epithel Cells (Auto) (0-13.0) /HPF Urine Mucus /HPF Urine Opiates Screen Urine Methadone Screen Ur Barbiturates Screen Ur Phencyclidine Scrn Ur Amphetamines Screen U Benzodiazepines Scrn Urine Cocaine Screen U Marijuana (THC) Screen Drugs of Abuse Note Plasma/Serum Alcohol (0-0.07) % 07/17/18 07/17/18 07/17/18 Range/Units 22:28 22:28 22:28 WBC (4.5-11.0) K/mm3 RBC (3.65-5.03) M/mm3 Hgb (11.8-15.2) gm/dl Hct (35.5-45.6) % MCV (84-94) fl MCH (28-32) pg MCHC (32-34) % RDW (13.2-15.2) % Plt Count (140-440) K/mm3 Lymph % (Auto) (13.4-35.0) % [place] % (Auto) (0.0-7.3) % Eos % (Auto) (0.0-4.3) % Baso % (Auto) (0.0-1.8) % Lymph # (1.2-5.4) K/mm3 [place] # (0.0-0.8) K/mm3 Eos # (0.0-0.4) K/mm3 Baso # (0.0-0.1) K/mm3 Seg Neutrophils % (40.0-70.0) % Seg Neutrophils # (1.8-7.7) K/mm3 PT (12.2-14.9) Sec. INR (0.87-1.13) APTT (24.2-36.6) Sec. D-Dimer (0-234) ng/mlDDU Sodium 141 (137-145) mmol/L Potassium 2.7 L* (3.6-5.0) mmol/L Chloride 96.6 L (98-107) mmol/L Carbon Dioxide 32 H (22-30) mmol/L Anion Gap 15 mmol/L BUN 16 (9-20) mg/dL Creatinine 1.1 (0.8-1.5) mg/dL Estimated GFR > 60 ml/min BUN/Creatinine Ratio 15 % Glucose 96 (75-100) mg/dL POC Glucose (70-105) Calcium 7.9 L (8.4-10.2) mg/dL Magnesium 1.90 (1.7-2.3) mg/dL Total Bilirubin 0.40 (0.1-1.2) mg/dL AST 40 (5-40) units/L ALT 14 (7-56) units/L Alkaline Phosphatase 104 (35-129) units/L Troponin T < 0.010 (0.00-0.029) ng/mL Total Protein 6.5 (6.3-8.2) g/dL Albumin 3.7 L (3.9-5) g/dL Albumin/Globulin Ratio 1.3 % Lipase 30 (13-60) units/L Urine Color (Yellow) Urine Turbidity (Clear) Urine pH (5.0-7.0) Ur Specific [place] (1.003-1.030) Urine Protein (Negative) mg/dL Urine Glucose (UA) (Negative) mg/dL Urine Ketones (Negative) mg/dL Urine Blood (Negative) Urine Nitrite (Negative) Urine Bilirubin (Negative) Urine Urobilinogen (<2.0) mg/dL Ur Leukocyte Esterase (Negative) Urine WBC (Auto) (0.0-6.0) /HPF Urine RBC (Auto) (0.0-6.0) /HPF U Epithel Cells (Auto) (0-13.0) /HPF Urine Mucus /HPF Urine Opiates Screen Urine Methadone Screen Ur Barbiturates Screen Ur Phencyclidine Scrn Ur Amphetamines Screen U Benzodiazepines Scrn Urine Cocaine Screen U Marijuana (THC) Screen Drugs of Abuse Note Plasma/Serum Alcohol 0.33 H (0-0.07) % 07/17/18 07/17/18 07/18/18 Range/Units 22:44 22:44 01:23 WBC (4.5-11.0) K/mm3 RBC (3.65-5.03) M/mm3 Hgb (11.8-15.2) gm/dl Hct (35.5-45.6) % MCV (84-94) fl MCH (28-32) pg MCHC (32-34) % RDW (13.2-15.2) % Plt Count (140-440) K/mm3 Lymph % (Auto) (13.4-35.0) % [place] % (Auto) (0.0-7.3) % Eos % (Auto) (0.0-4.3) % Baso % (Auto) (0.0-1.8) % Lymph # (1.2-5.4) K/mm3 [place] # (0.0-0.8) K/mm3 Eos # (0.0-0.4) K/mm3 Baso # (0.0-0.1) K/mm3 Seg Neutrophils % (40.0-70.0) % Seg Neutrophils # (1.8-7.7) K/mm3 PT (12.2-14.9) Sec. INR (0.87-1.13) APTT (24.2-36.6) Sec. D-Dimer (0-234) ng/mlDDU Sodium (137-145) mmol/L Potassium (3.6-5.0) mmol/L Chloride (98-107) mmol/L Carbon Dioxide (22-30) mmol/L Anion Gap mmol/L BUN (9-20) mg/dL Creatinine (0.8-1.5) mg/dL Estimated GFR ml/min BUN/Creatinine Ratio % Glucose (75-100) mg/dL POC Glucose (70-105) Calcium (8.4-10.2) mg/dL Magnesium (1.7-2.3) mg/dL Total Bilirubin (0.1-1.2) mg/dL AST (5-40) units/L ALT (7-56) units/L Alkaline Phosphatase (35-129) units/L Troponin T < 0.010 (0.00-0.029) ng/mL Total Protein (6.3-8.2) g/dL Albumin (3.9-5) g/dL Albumin/Globulin Ratio % Lipase (13-60) units/L Urine Color Yellow (Yellow) Urine Turbidity Clear (Clear) Urine pH 6.0 (5.0-7.0) Ur Specific [place] 1.009 (1.003-1.030) Urine Protein <15 mg/dl (Negative) mg/dL Urine Glucose (UA) Neg (Negative) mg/dL Urine Ketones Neg (Negative) mg/dL Urine Blood Neg (Negative) Urine Nitrite Neg (Negative) Urine Bilirubin Neg (Negative) Urine Urobilinogen 4.0 (<2.0) mg/dL Ur Leukocyte Esterase Neg (Negative) Urine WBC (Auto) 2.0 (0.0-6.0) /HPF Urine RBC (Auto) 1.0 (0.0-6.0) /HPF U Epithel Cells (Auto) < 1.0 (0-13.0) /HPF Urine Mucus Few /HPF Urine Opiates Screen Presumptive negative Urine Methadone Screen Presumptive negative Ur Barbiturates Screen Presumptive negative Ur Phencyclidine Scrn Presumptive negative Ur Amphetamines Screen Presumptive negative U Benzodiazepines Scrn Presumptive negative Urine Cocaine Screen Presumptive negative U Marijuana (THC) Screen Presumptive positive Drugs of Abuse Note Disclamer Plasma/Serum Alcohol (0-0.07) % - EKG Data -: EKG Interpreted by Vt EKG shows normal: sinus rhythm Rate: normal (89) - EKG Data When compared to previous EKG there are: previous EKG unavailable Interpretation: nonspecific ST-T wave shon, LVH 07/17/18 22:18 LAE, Prolonged QT, No STEMI. - Radiology Data Radiology results: report reviewed, image reviewed CTA chest with contrast is unremarkable. - Medical Decision Making Chest pain. Uncontrolled hypertension. Acute hypokalemia. We'll admit to Dr. Fuentes for further management. Critical care attestation.: If time is entered above; I have spent that time in minutes in the direct care of this critically ill patient, excluding procedure time. ED Disposition Clinical Impression: Uncontrolled hypertension, Alcohol abuse, Acute hypokalemia, Marijuana abuse, Hypocalcemia Chest pain Qualifiers: Chest pain type: unspecified Qualified Code(s): R07.9 - Chest pain, unspecified Disposition: OP ADMIT IP TO THIS HOSP Is pt being admited?: Yes Does the pt Need Aspirin: Yes Condition: Stable Time of Disposition: 02:26
[2018-07-17] MEDS ORDERED: NITROSTAT SL ONE (22:10)
[2018-07-17] MEDS ORDERED: NITRO-BID 2% TP ONE (22:12)
[2018-07-17] MEDS ORDERED: PROTONIX IV ONE (22:14)
[2018-07-17 22:46] LABS: Basophils # (Auto) 0.1 K/mm3 (0.0-0.1); Basophils % (Auto) 1.4 % (0.0-1.8); Eosinophils % (Auto) 1.1 % (0.0-4.3); Hematocrit 34.4 % (35.5-45.6); Hemoglobin 11.6 gm/dl (11.8-15.2); Lymphocytes # (Auto) 1.1 K/mm3 (1.2-5.4); Lymphocytes % (Auto) 27.8 % (13.4-35.0); Mean Corpuscular HGB Conc 34 % (32-34); Mean Corpuscular Volume 93 fl (84-94); Monocytes # (Auto) 0.6 K/mm3 (0.0-0.8); Platelet Count 230 K/mm3 (140-440); Red Blood Count 3.69 M/mm3 (3.65-5.03); Red Cell Distribution Width 14.9 % (13.2-15.2)
--- NOTE | 2018-07-17 22:53 | XRay Report ---
FINAL REPORT PROCEDURE: XR CHEST 1V AP TECHNIQUE: Chest radiograph anteroposterior view. CPT 88281 HISTORY: Chest Pain COMPARISON: No prior studies are available for comparison. FINDINGS: Heart: Normal. Mediastinum/Vessels: Normal. Lungs/Pleural space: Normal. Bony thorax: No acute osseous abnormality. Life support devices: None. IMPRESSION: No acute cardiopulmonary abnormality.
[2018-07-17 22:57] LABS: INR 0.87 (0.87-1.13)
[2018-07-17 22:58] LABS: Partial Thromboplastin Time 28.3 Sec. (24.2-36.6)
[2018-07-17 23:08] LABS: Bilirubin,Urine NEG (Negative); Blood,Urine NEG (Negative); Color,Urine Yellow (Yellow); Mucus,Urine FEW /HPF; Protein,Urine <15 mg/dL mg/dL (Negative)
[2018-07-17 23:10] LABS: Alanine Aminotransferase 14 units/L (7-56); Albumin 3.7 g/dL (3.9-5); BUN/Creatinine Ratio 15; Blood Urea Nitrogen 16 mg/dL (9-20); Calcium 7.9 mg/dL (8.4-10.2); Hemolysis Index 5
[2018-07-17 23:16] LABS: Amphetamine Screen,Urine PRESUMPTIVE NEGATIVE; Benzodiazepines Screen,Urine PRESUMPTIVE NEGATIVE; Cocaine Screen,Urine PRESUMPTIVE NEGATIVE; Methadone Screen,Urine PRESUMPTIVE NEGATIVE; Opiate Screen,Urine PRESUMPTIVE NEGATIVE
[2018-07-17 23:32] LABS: Cannabinoid Screen,Urine PRESUMPTIVE POSITIVE
[2018-07-17] MEDS ORDERED: K-DUR PO ONE (23:53)
[2018-07-17] MEDS ORDERED: CALCIUM GLUCONATE 2,000 MG in NACL 0.9% 100 ML IV ONE (23:53)
[2018-07-18] MEDS ORDERED: KCL 10MEQ/100ML 20 MEQ/200 ML BAG IV ONE (00:04)
[2018-07-18] MEDS: KCL 10MEQ/100ML 10 MEQ/100 ML BAG IV SCH ×6 (00:10→16:12)
[2018-07-18] MEDS ORDERED: APRESOLINE IV ONE ×2 (01:27→02:22)
--- NOTE | 2018-07-18 02:12 | Cat Scan Report ---
FINAL REPORT PROCEDURE: CT ANGIO CHEST TECHNIQUE: Computerized tomographic angiography of the chest was performed after the IV injection of iodinated nonionic contrast including image processing. The image data was postprocessed using 2-dim ensional multiplanar reformatted (MPR) and 3-dimensional (MIP and/or volume rendered) techniques. HISTORY: Chest pain COMPARISON: No prior studies are available for comparison. FINDINGS: Heart and pericardium: Normal. Thoracic aorta: Normal. Pulmonary vasculature: Normal. Lymph nodes: No enlarged thoracic lymph nodes. Lungs: The lungs are clear. No infiltrate, effusion or pneumothorax. Central airway is. Pleural space: No effusion, thickening, or pneumothorax. Musculoskeletal structures: No significant abnormality. Upper abdominal structures: No significant abnormality. IMPRESSION: There is no evidence of pulmonary arterial emboli. The lungs are clear without infiltrate, effusion or pneumothorax.
[2018-07-18] MEDS ORDERED: LOPRESSOR PO ONE (02:52)
[2018-07-18] MEDS ORDERED: PROVENTIL IH ONE (02:53)
[2018-07-18] MEDS ORDERED: AFLURIA QUAD 2018-2019 SYRINGE IM ONE (06:38)
[2018-07-18] MEDS ORDERED: PNEUMOVAX 23 IM ONE (06:38)
[2018-07-18] MEDS ORDERED: DEMADEX PO PRN (08:59)
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
[2018-07-18] MEDS ORDERED: KCL 20MEQ/100ML 20 MEQ/100 ML BAG IV SCH (11:00)
[2018-07-18] MEDS: ATIVAN PO PRN (12:40)
[2018-07-18] MEDS: ASPIRIN PO SCH (12:40)
[2018-07-18] MEDS: THORAZINE PO PRN ×2 (12:41→22:31)
[2018-07-18] MEDS: NITRO-BID 2% TP SCH (12:41)
[2018-07-18 13:41] LABS: BUN/Creatinine Ratio 15; Blood Urea Nitrogen 15 mg/dL (9-20); Calcium 8.4 mg/dL (8.4-10.2); Hemolysis Index 38
[2018-07-18 13:48] LABS: Hematocrit 37.5 % (35.5-45.6); Hemoglobin 12.4 gm/dl (11.8-15.2); Mean Corpuscular HGB Conc 33 % (32-34); Mean Corpuscular Volume 94 fl (84-94); Platelet Count 206 K/mm3 (140-440); Red Blood Count 3.99 M/mm3 (3.65-5.03); Red Cell Distribution Width 15.1 % (13.2-15.2)
[2018-07-18] MEDS: ZESTRIL PO SCH (14:40)
[2018-07-18] MEDS: LOPRESSOR PO SCH ×2 (14:40→21:36)
[2018-07-18] MEDS: APRESOLINE PO SCH ×2 (14:40→21:36)
[2018-07-18] MEDS: NORVASC PO SCH (16:13)
[2018-07-18] MEDS: TYLENOL PO PRN (22:31)
[2018-07-19] MEDS: NITRO-BID 2% TP SCH (06:34)
[2018-07-19 06:52] LABS: Alanine Aminotransferase 11 units/L (7-56); Albumin 2.9 g/dL (3.9-5); BUN/Creatinine Ratio 18; Blood Urea Nitrogen 16 mg/dL (9-20); Calcium 8.3 mg/dL (8.4-10.2); Hemolysis Index 4
--- NOTE | 2018-07-19 08:39 | Progress Note ---
Assessment and Plan Pt is a 57 y/o male who has a history of coronary artery disease, hypertension, alcohol abuse, presented to the Ed on account dull retrostersnl chest pain that was associated with shortness of breah and diaphoresis. No radiatory and no or htopnea, palpitaionor PND. Patient also stated that she is that he has been drinking a lot of alcohol since his in May 2018. He drinks about a pint a day. He wants to drink himself to he said. He used to have gone on himself however age and didn't fire. He has a history of bipolar disorder and suicide attempts in the past. Denies any auditory or visual hallucinations. Said he currently does not want to hurt himself anymore. On presenation to the Ed, EKG showd no specific changes. serial Jamar x 2 were normal. Had hypokalemia of 2.7. and had runs of K in the ED. CXR was unramarkable. CTA of the chest done b/c of elevate D-dimer was unremarkable. Admissin was requested for further w/u. Inventory Control Supervisor cancelled stress test because pt had a normal stress in 01/08/18. - Chest pain Nonspecific EKG changes and normal Serial Jamar x 2 Continue with oxygen ASA, NTG, morphine Physical stress tests in January 2018 that showed normal stress with ejection fraction of 62% - Coronary artery disease status post stent placement in 2018 Continue aspirin, statins, lisinopril. - Alcohol abuse [facility] protocol Alcoholism counseling was done - Hypokalemia - corrected recheck Mg and k levels - Major depression with Suicidal ideation Commence patient on sertraline Psych consult - Bipolar disorder Psych consult - Dispostiion: Discharge to Psych unit - DVT ppx with lovenox Subjective Date of service: 07/19/18 Principal diagnosis: chest pain, CAD, alcohol abuse Interval history: Chest pain better. However has pain all over his body Objective - Exam Narrative Exam: Constitutional: Well-nourished well-developed. In no distress Head: Normocephalic atraumatic Eyes: Pupils are equal round and reactive to light Nose: No enlarged turbinates, no septal deviation. Mouth: Moist mucous membranes. Neck: Supple no thyromegaly. No bruit. No JVD Heart: Regular rate and rhythm, S1-S2 normal. No rubs murmurs or gallop Lungs: Clear to auscultation bilaterally. no rales or rhonchi Abdomen: Soft, nontender. Bowel sound are present. Extremities: No edema, no cyanosis, no clubbing. Neuro: Alert oriented Oriented x3. No focal sensory or motor deficit. Skin: No rashes or hyperpigmented spots Musculoskeletal system: No joint pain or swelling Hematological: No petechia or subcutanous hemorrhages. Immunological: No multiple septic spots on the skin Lymphatic: No generalized lymphadenopathy Psychiatry: Has depressed affect. Has Suicidal or homicidal ideation. Denies any tactile, visual or auditory due to hallucinations. - Constitutional Vitals: Vital Signs - 12hr 07/18/18 07/18/18 07/18/18 21:25 21:26 21:36 Temperature Pulse Rate 84 80 Respiratory Rate Blood Pressure 139/84 O2 Sat by Pulse 100 Oximetry 07/18/18 07/18/18 07/18/18 22:00 22:31 23:51 Temperature 98.9 F Pulse Rate Respiratory 20 16 Rate Blood Pressure 139/84 O2 Sat by Pulse 98 Oximetry 07/18/18 07/19/18 07/19/18 23:55 04:15 05:00 Temperature 98.5 F Pulse Rate 77 69 68 Respiratory 16 14 Rate Blood Pressure 126/73 O2 Sat by Pulse 98 100 Oximetry 07/19/18 06:34 Temperature Pulse Rate 68 Respiratory Rate Blood Pressure 126/73 O2 Sat by Pulse Oximetry - Labs CBC & Chem 7: 07/18/18 13:11 07/19/18 05:19 Labs: Abnormal lab results 07/18/18 07/19/18 Range/Units 13:11 05:19 Sodium 134 L (137-145) mmol/L Carbon Dioxide 20 L D (22-30) mmol/L Glucose 189 H (75-100) mg/dL Calcium 8.3 L (8.4-10.2) mg/dL Phosphorus 2.20 L (2.5-4.5) mg/dL Total Protein 5.5 L (6.3-8.2) g/dL Albumin 2.9 L (3.9-5) g/dL
[2018-07-19] MEDS: LOPRESSOR PO SCH ×2 (09:47→22:14)
[2018-07-19] MEDS: NORVASC PO SCH (09:47)
[2018-07-19] MEDS: ASPIRIN PO SCH (09:47)
[2018-07-19] MEDS: ZESTRIL PO SCH (09:48)
[2018-07-19] MEDS: APRESOLINE PO SCH ×2 (09:48→22:14)
--- NOTE | 2018-07-19 11:58 | Consultation ---
History of Present Illness - Reason for Consult Consult date: 07/19/18 Reason for consult: Mental Health Evaluation Requesting physician: VÍCTOR LAURA - Chief Complaint Chief complaint: "I don't want to live" - History of Present Psychiatric Illness 57 y.o. AA male who presented to the hospital for chest pain. Psychiatry was consulted to see the patient for SI's. Today the patient patient is calm and cooperative, but sad during the assessment. He stated that it's been "rough" since his of cancer April 2018. He stated that he do not have anyone to care for at this time. He stated that he miss her a lot and at this time he has no reason to live. He stated that he is dealing with life stressors at this time and don't have any support from his family. He stated that he tried to drink himself to prior to coming to the hospital. Also, he stated that he put a gun under his chin and pulled the trigger, but the gun jammed. He continue to endorse SI's when asked. He denies any previous suicide attempts when asked. He denies HI's and AVH's. He stated that he cannot initiate sleep. He stated that his appetite is effected by his GERD. He denies recreational drug use. He stated that he normally don't consume alcohol (etoh) Medications and Allergies Allergies Allergy/AdvReac Type Severity Reaction Status Date / Time peanut Allergy Unknown Verified 11/21/17 05:57 Home Medications Medication Instructions Recorded Confirmed Last Taken Type Aspirin 81 mg PO DAILY #30 tab.chew 01/09/18 07/18/18 07/16/18 12:00 Rx Lisinopril [Zestril TAB] 40 mg PO QDAY #30 tablet 01/09/18 07/18/18 07/16/18 12:00 Rx Metoprolol [Lopressor TAB] 100 mg PO BID #60 tablet 01/09/18 07/18/18 07/16/18 12:00 Rx amLODIPine [Norvasc] 10 mg PO DAILY #30 tab 01/09/18 07/18/18 07/16/18 12:00 Rx hydrALAZINE [Apresoline TAB] 100 mg PO BID #60 tablet 01/09/18 07/18/18 07/16/18 12:00 Rx 100mg Active Meds: Active Medications Acetaminophen (Tylenol) 650 mg PO Q6H PRN PRN Reason: Pain, Mild (1-3) Last Admin: 07/18/18 22:31 Dose: 650 mg Documented by: Amlodipine Besylate (Norvasc) 10 mg PO QDAY [facility] Last Admin: 07/19/18 09:47 Dose: 10 mg Documented by: Aspirin (Aspirin) 325 mg PO QDAY [facility] Last Admin: 07/19/18 09:47 Dose: 325 mg Documented by: Chlorpromazine HCl (Thorazine) 25 mg PO BID PRN PRN Reason: Hiccups Last Admin: 07/18/18 22:31 Dose: 25 mg Documented by: Hydralazine HCl (Apresoline) 100 mg PO BID [facility] Last Admin: 07/19/18 09:48 Dose: 100 mg Documented by: Lisinopril (Zestril) 40 mg PO QDAY [facility] Last Admin: 07/19/18 09:48 Dose: 40 mg Documented by: Lorazepam (Ativan) 2 mg PO Q1H PRN PRN Reason: CIWA-Ar 8-15 Last Admin: 07/18/18 12:40 Dose: 2 mg Documented by: Metoprolol Tartrate (Lopressor) 100 mg PO BID [facility] Last Admin: 07/19/18 09:47 Dose: 100 mg Documented by: Nitroglycerin (Nitro-Bid 2%) 0.5 inch TP DAILY@0600 [facility]; Protocol Last Admin: 07/19/18 06:34 Dose: Not Given Documented by: Past psychiatric history - Past Medical History Past Medical History: GERD, hypertension Past Surgical History: No surgical history - past Psychiatric treatment and history psychiatric treatment history: Denies a psy hx and fam psy hx. - Social History Social history: Lives alone Mental Status Exam - Vital signs Last Vital Signs Temp 98.5 F 07/19/18 04:15 Pulse 72 07/19/18 10:00 Resp 20 07/19/18 10:00 BP 158/91 07/19/18 09:48 Pulse Ox 99 07/19/18 10:00 - Exam Narrative exam: MSE: Appearance: calm, cooperative Behavior: regular eye contact Speech: regular rate and tone Mood: "depressed' sad Affect: congruent to mood Thought Process: linear Thought Content: denies HI's and AVH's Motor Activity: sitting up in bed Cognition: A/O x 3 Insight: fair Judgment: poor Results Result Diagrams: 07/18/18 13:11 07/20/18 06:19 Abnormal lab results 07/18/18 07/19/18 Range/Units 13:11 05:19 Sodium 134 L (137-145) mmol/L Carbon Dioxide 20 L D (22-30) mmol/L Glucose 189 H (75-100) mg/dL Calcium 8.3 L (8.4-10.2) mg/dL Phosphorus 2.20 L (2.5-4.5) mg/dL Total Protein 5.5 L (6.3-8.2) g/dL Albumin 2.9 L (3.9-5) g/dL All other labs normal. Assessment and Plan Assessment and plan: Impression: MDD, Severe Type. Insomnia. Alcohol Intoxication on arrival to ER. Today the patient patient is calm and cooperative, but sad during the assessment. The patient endorsed SI's. DDx: R/O Bipolar DO, R/O Alcohol Induced Mood DO Recommendation/Plan: Continue 1013 and start Zoloft 50 mg PO daily for depression and Trazodone 50 mg PO HS for sleep. Discussed possible suidclaity/medication induced vic with the patient reference antidepressants. Also, discussed possible priapism with the patient reference Trazodone. Dispo: The patient is referred to inpatient psy services. . Staffed with Dr Elisa Turner.
[2018-07-19] MEDS: TYLENOL PO PRN (12:00)
[2018-07-19] MEDS: ATIVAN PO PRN (13:43)
[2018-07-19] MEDS: ZOLOFT PO SCH (13:44)
[2018-07-19] MEDS ORDERED: MIRALAX 3350 PO PRN (15:24)
[2018-07-19] MEDS ORDERED: DESYREL PO SCH (22:00)
[2018-07-20] MEDS: NITRO-BID 2% TP SCH (05:29)
[2018-07-20] MEDS: TYLENOL PO PRN (05:30)
[2018-07-20 06:53] LABS: Alanine Aminotransferase 11 units/L (7-56); Albumin 3.3 g/dL (3.9-5); BUN/Creatinine Ratio 11; Blood Urea Nitrogen 10 mg/dL (9-20); Calcium 8.4 mg/dL (8.4-10.2); Hemolysis Index 3
--- NOTE | 2018-07-20 09:54 | Discharge Summary ---
Providers - Providers Date of Admission: 07/18/18 04:53 Date of discharge: 07/20/18 Attending physician: VÍCTOR LAURA 07/18/18 08:46 Consult to Mental Health [CONS] Stat Reason For Exam: suicidal idealation Place consult to:: mental health Notified:: Jonny Phone number called:: [phone] Was contact made?: Yes If yes, spoke with:: Elis Time called:: 08:56 Comment:: Patient state his goal is to kill himself Primary care physician: KIAH ALVES Hospitalization Reason for admission: chest pain, suicidal ideation, major depressive disorder Condition: Stable Pertinent studies: Chest x-ray was unremarkable for any acute event, CT angiography chest showed no evidence of PE. EKG showed left ventricular hypertrophy. Procedures: none Hospital course: Pt is a 57 y/o male who has a history of coronary artery disease, hypertension, alcohol abuse, presented to the Ed on account dull retrostersnl chest pain that was associated with shortness of breath and diaphoresis. None radiatory and no orthopnea, palpitation or PND. Patient also stated that he has been drinking a lot of alcohol since his in May 2018. He drinks about a pint a day. He wants to drink himself to he said. He used a gun on his head. However it did not fire. He has a history of bipolar disorder and suicide attempts in the past. Denies any auditory or visual hallucinations. Said he currently does not want to hurt himself anymore. On presenation to the Ed, EKG showed none specific changes. serial Jamar x 2 were normal. Had hypokalemia of 2.7. and had runs of K in the ED. CXR was unramarkable. CTA of the chest done b/c of elevate D-dimer was unremarkable. On admission and was commenced on oxygen and nitroglycerin aspirin and morphine, CIWA protocol with Ativan, and was placed on 1013. Psych consult was obtained. Patient was commenced on Zo loft. He stated he no longer wants to hurt himself. Chest pain resolved. Inpatient psych unit admission was recommended by the psychiatrist. Patient therefore is being discharged to inpatient psychiatric facility for evaluation and management. Cardiology consult was obtained for stress test. However this was canceled by the business system consultant who said that he had a normal Lexiscan stress test in January 2018. He is well prohibitive physician in 5-7 days and on discharge and to continue to follow-up with his business system consultant. Counseling against alcohol and tobacco use was done. Disposition: [id number]/[id number] PSY HOSP/PSY UNIT Time spent for discharge: 35 mins - Discharge Diagnoses (1) Acute hypokalemia Status: Acute (2) Alcohol abuse Status: Acute (3) Chest pain Status: Acute Qualifiers: Chest pain type: unspecified Qualified Code(s): R07.9 - Chest pain, unspecified (4) Uncontrolled hypertension Status: Acute Core Measure Documentation - Palliative Care Palliative Care/ Comfort Measures: Not Applicable - Core Measures Any of the following diagnoses?: none Exam - Physical Exam Narrative exam: Constitutional: Well-nourished well-developed. In no distress Head: Normocephalic atraumatic Eyes: Pupils are equal round and reactive to light Nose: No enlarged turbinates, no septal deviation. Mouth: Moist mucous membranes. Neck: Supple no thyromegaly. No bruit. No JVD Heart: Regular rate and rhythm, S1-S2 normal. No rubs murmurs or gallop Lungs: Clear to auscultation bilaterally. no rales or rhonchi Abdomen: Soft, nontender. Bowel sound are present. Extremities: No edema, no cyanosis, no clubbing. Neuro: Alert oriented Oriented x3. No focal sensory or motor deficit. Skin: No rashes or hyperpigmented spots Musculoskeletal system: No joint pain or swelling Hematological: No petechia or subcutanous hemorrhages. Immunological: No multiple septic spots on the skin Lymphatic: No generalized lymphadenopathy Psychiatry: Has depressed affect. Has Suicidal or homicidal ideation. Denies any tactile, visual or auditory due to hallucinations. - Constitutional Vitals: Temp Pulse Resp BP Pulse Ox 98.2 F 68 20 141/89 98 07/20/18 05:26 07/20/18 05:29 07/20/18 05:30 07/20/18 05:29 07/20/18 08:27 Plan Activity: advance as tolerated Weight Bearing Status: Non-Weight Bearing Diet: low cholesterol, low salt Special Instructions: smoking cessation Follow up with: KIAH ALVES MD [Primary Care Provider] - 14 Days VÍCTOR LAURA MD [Staff Physician] - 3 Days Prescriptions: amLODIPine [Norvasc] 10 mg PO QDAY #30 tablet Aspirin [Aspirin TAB] 81 mg PO QDAY #30 tablet Famotidine [Pepcid] 20 mg PO QDAY #30 tablet hydrALAZINE [Apresoline TAB] 100 mg PO BID #60 tab Lisinopril [Zestril TAB] 40 mg PO QDAY #30 tablet LORazepam [Ativan] 2 mg PO Q1H PRN #10 tablet PRN Reason: [facility] Metoprolol [Lopressor TAB] 100 mg PO BID #60 tablet Sertraline [Zoloft] 50 mg PO QDAY #30 tablet traZODone [Desyrel] 50 mg PO QHS #30 tablet
[2018-07-20] MEDS: APRESOLINE PO SCH ×2 (10:05→21:13)
[2018-07-20] MEDS: NORVASC PO SCH (10:05)
[2018-07-20] MEDS: ZESTRIL PO SCH (10:05)
[2018-07-20] MEDS: PEPCID PO SCH (10:05)
[2018-07-20] MEDS: ASPIRIN PO SCH (10:06)
[2018-07-20] MEDS: ZOLOFT PO SCH (10:06)
--- NOTE | 2018-07-20 11:47 | Progress Note ---
Subjective - Reason for Consult Consult date: 07/20/18 Reason for consult: Psychiatry Follow-up - Chief Complaint Chief complaint: "Life is hard" 57 y.o. AA male who presented to the hospital for chest pain. Psychiatry was consulted to see the patient for SI's. Today the patient patient is calm and cooperative during the assessment. He stated that he is reflecting on his life. He stated that life is hard without his being around. He continues to endorse SI's, but do not have a suicide plan when asked. He denies HI's and AVH's. He denies any side effects of his medications. He stated that he didn't sleep last night. Mental Status Exam - Vital signs Last Vital Signs Temp 98.1 F 07/20/18 08:00 Pulse 65 07/20/18 08:00 Resp 18 07/20/18 08:00 BP 152/96 07/20/18 10:05 Pulse Ox 98 07/20/18 08:27 - Exam Narrative exam: MSE: Appearance: calm, cooperative Behavior: regular eye contact Speech: regular rate and tone Mood: "depressed' Affect: congruent to mood Thought Process: linear Thought Content: denies HI's and AVH's Motor Activity: sitting up in bed Cognition: A/O x 3 Insight: fair Judgment: poor Assessment and Plan Impression: MDD, Severe Type. Insomnia. Alcohol Intoxication on arrival to ER. Today the patient patient is calm and cooperative during the assessment. The patient is still endorsing SI's. DDx: R/O Bipolar DO, R/O Alcohol Induced Mood DO Recommendation/Plan: Continue 1013 and Zoloft 50 mg PO daily for depression and increase Trazodone to 100 mg PO HS for sleep. Discussed possible suidclaity/medication induced vic with the patient reference antidepressants. Also, discussed possible priapism with the patient reference Trazodone. Dispo: The patient is referred to inpatient psy services. . Will staff with Dr Forbes.
[2018-07-20] MEDS: LOPRESSOR PO SCH ×2 (13:16→21:13)
[2018-07-20] MEDS: DESYREL PO SCH (21:13)
[2018-07-20] MEDS: THORAZINE PO PRN (21:17)
[2018-07-21 05:58] LABS: Alanine Aminotransferase 9 units/L (7-56); Albumin 3.3 g/dL (3.9-5); BUN/Creatinine Ratio 13; Blood Urea Nitrogen 12 mg/dL (9-20); Calcium 8.3 mg/dL (8.4-10.2); Hemolysis Index 8
[2018-07-21] MEDS: NITRO-BID 2% TP SCH (06:01)
--- NOTE | 2018-07-21 09:49 | Progress Note ---
Assessment and Plan Pt is a 57 y/o male who has a history of coronary artery disease, hypertension, alcohol abuse, presented to the Ed on account dull retrostersnl chest pain that was associated with shortness of breah and diaphoresis. No radiatory and no or htopnea, palpitaionor PND. Patient also stated that she is that he has been drinking a lot of alcohol since his in May 2018. He drinks about a pint a day. He wants to drink himself to he said. He used to have gone on himself however age and didn't fire. He has a history of bipolar disorder and suicide attempts in the past. Denies any auditory or visual hallucinations. Said he currently does not want to hurt himself anymore. On presenation to the Ed, EKG showd no specific changes. serial Jamar x 2 were normal. Had hypokalemia of 2.7. and had runs of K in the ED. CXR was unramarkable. CTA of the chest done b/c of elevate D-dimer was unremarkable. Admissin was requested for further w/u. Credit Risk Associate cancelled stress test because pt had a normal stress in 01/08/18. - Major depression with Suicidal ideation Commence patient on Sertraline Psych consult and following pt Awaitign placemetn to inpt Psych unit . Pt has no payer source so this is delayed - Bipolar disorder Psych consult - Chest pain resolved Nonspecific EKG changes and normal Serial Jamar x 2 Continue with oxygen ASA, NTG, morphine Physical stress tests in January 2018 that showed normal stress with ejection fraction of 62% - Coronary artery disease status post stent placement in 2018 Continue aspirin, statins, lisinopril. - Alcohol abuse [place] protocol Alcoholism counseling was done - Hypokalemia - corrected recheck Mg and k levels Moderate protein calorie malnutrition Dietary consult - DVT ppx with lovenox - Dispostiion: Awaiting placement into an in pt Psych unit when bed available - Patient Problems (1) Acute hypokalemia Current Visit: Yes Status: Acute (2) Alcohol abuse Current Visit: Yes Status: Acute (3) Chest pain Current Visit: Yes Status: Acute Qualifiers: Chest pain type: unspecified Qualified Code(s): R07.9 - Chest pain, unspecified (4) Uncontrolled hypertension Current Visit: Yes Status: Acute Subjective Date of service: 07/21/18 Principal diagnosis: chest pain, CAD, alcohol abuse Interval history: Patient was set to be had in voices from his . He also wants to go out of the room to join to train that he heard passing by. Want regular diet not cardiac diet Objective - Exam Narrative Exam: Constitutional: Well-nourished well-developed. In no distress Head: Normocephalic atraumatic Eyes: Pupils are equal round and reactive to light Nose: No enlarged turbinates, no septal deviation. Mouth: Moist mucous membranes. Neck: Supple no thyromegaly. No bruit. No JVD Heart: Regular rate and rhythm, S1-S2 normal. No rubs murmurs or gallop Lungs: Clear to auscultation bilaterally. no rales or rhonchi Abdomen: Soft, nontender. Bowel sound are present. Extremities: No edema, no cyanosis, no clubbing. Neuro: Alert oriented Oriented x3. No focal sensory or motor deficit. Skin: No rashes or hyperpigmented spots Musculoskeletal system: No joint pain or swelling Hematological: No petechia or subcutanous hemorrhages. Immunological: No multiple septic spots on the skin Lymphatic: No generalized lymphadenopathy Psychiatry: Has depressed affect. Has Suicidal or homicidal ideation. Has Visual and auditory hallucination. - Constitutional Vitals: Vital Signs - 12hr 07/20/18 07/21/18 07/21/18 23:22 05:48 06:01 Temperature 98.2 F Pulse Rate 76 64 64 Respiratory 18 20 Rate Blood Pressure 117/74 134/85 134/85 O2 Sat by Pulse 97 99 Oximetry - Labs CBC & Chem 7: 07/18/18 13:11 07/21/18 04:44 Labs: Abnormal lab results 07/21/18 Range/Units 04:44 Sodium 135 L (137-145) mmol/L Calcium 8.3 L (8.4-10.2) mg/dL Total Protein 5.8 L (6.3-8.2) g/dL Albumin 3.3 L (3.9-5) g/dL
[2018-07-21] MEDS: TYLENOL PO PRN (10:16)
[2018-07-21] MEDS: ZOLOFT PO SCH (10:17)
[2018-07-21] MEDS: PEPCID PO SCH (10:17)
[2018-07-21] MEDS: APRESOLINE PO SCH ×2 (10:17→21:26)
[2018-07-21] MEDS: ASPIRIN PO SCH (10:17)
[2018-07-21] MEDS: LOPRESSOR PO SCH ×2 (10:18→21:26)
[2018-07-21] MEDS: NORVASC PO SCH (10:18)
[2018-07-21] MEDS: ZESTRIL PO SCH (10:18)
[2018-07-21] MEDS: ATIVAN PO PRN (13:13)
--- NOTE | 2018-07-21 13:39 | Progress Note ---
Subjective - Reason for Consult Consult date: 07/21/18 Reason for consult: Psychiatry Follow-up - Chief Complaint Chief complaint: "Hello" 57 y.o. AA male who presented to the hospital for chest pain. Psychiatry was consulted to see the patient for SI's. Today the patient patient is calm and cooperative during the assessment. He continues to endorse SI's. He stated, "I don't know what to do about my situation." He denies HI's and AVH's. He denies any side effects of his medications. Mental Status Exam - Vital signs Last Vital Signs Temp 97.8 F 07/21/18 09:45 Pulse 67 07/21/18 10:18 Resp 20 07/21/18 10:16 BP 122/89 07/21/18 10:18 Pulse Ox 95 07/21/18 10:00 - Exam Narrative exam: MSE: Appearance: calm, cooperative Behavior: regular eye contact Speech: regular rate and low tone Mood: withdrawn Affect: flat Thought Process: circumstantial Thought Content: denies HI's and AVH's Motor Activity: sitting up in bed Cognition: A/O x 3 Insight: fair Judgment: poor Assessment and Plan Impression: MDD, Severe Type. Insomnia. Alcohol Intoxication on arrival to ER. Today the patient patient is calm and cooperative during the assessment. The patient is still endorsing SI's. DDx: R/O Bipolar DO, R/O Alcohol Induced Mood DO Recommendation/Plan: Continue 1013 and Zoloft 50 mg PO daily for depression and increase Trazodone to 100 mg PO HS for sleep. Discussed possible suidclaity/medication induced vic with the patient reference antidepressants. Also, discussed possible priapism with the patient reference Trazodone. Dispo: The patient is referred to inpatient psy services. . Will staff with Dr Almeida.
[2018-07-21] MEDS: DESYREL PO SCH (21:26)
[2018-07-22] MEDS: NITRO-BID 2% TP SCH (05:28)
[2018-07-22] MEDS: THORAZINE PO PRN (06:34)
[2018-07-22] MEDS: PEPCID PO SCH (10:44)
[2018-07-22] MEDS: NORVASC PO SCH (10:44)
[2018-07-22] MEDS: ZOLOFT PO SCH (10:44)
[2018-07-22] MEDS: ATIVAN PO PRN ×2 (10:44→16:54)
[2018-07-22] MEDS: LOPRESSOR PO SCH ×2 (10:44→21:31)
[2018-07-22] MEDS: ZESTRIL PO SCH (10:44)
[2018-07-22] MEDS: ASPIRIN PO SCH (10:44)
[2018-07-22] MEDS: APRESOLINE PO SCH ×2 (10:44→21:31)
--- NOTE | 2018-07-22 15:59 | Progress Note ---
Assessment and Plan Pt is a 57 y/o male who has a history of coronary artery disease, hypertension, alcohol abuse, presented to the Ed on account dull retrostersnl chest pain that was associated with shortness of breah and diaphoresis. No radiatory and no or htopnea, palpitaionor PND. Patient also stated that she is that he has been drinking a lot of alcohol since his in May 2018. He drinks about a pint a day. He wants to drink himself to he said. He used to have gone on himself however age and didn't fire. He has a history of bipolar disorder and suicide attempts in the past. Denies any auditory or visual hallucinations. Said he currently does not want to hurt himself anymore. On presenation to the Ed, EKG showd no specific changes. serial Jamar x 2 were normal. Had hypokalemia of 2.7. and had runs of K in the ED. CXR was unramarkable. CTA of the chest done b/c of elevate D-dimer was unremarkable. Admissin was requested for further w/u. Bung Driver cancelled stress test because pt had a normal stress in 01/08/18. - Major depression with Suicidal ideation continue with Sertraline Psych consult and following pt Abating placement to inpt Psych unit . Pt has no payer source so placement is delayed - Bipolar disorder Psych consult - Chest pain resolved Nonspecific EKG changes and normal Serial Jamar x 2 Continue with oxygen ASA, NTG, morphine Physical stress tests in January 2018 that showed normal stress with ejection fraction of 62% - Coronary artery disease status post stent placement in 2018 Continue aspirin, statins, lisinopril. - Alcohol abuse [place] protocol Alcoholism counseling was done - Hypokalemia - corrected recheck Mg and k levels Moderate protein calorie malnutrition Dietary consult - DVT ppx with lovenox - Dispostiion: Awaiting placement into an in pt Psych unit when bed available - Time spent: 25 minutes - Patient Problems (1) Acute hypokalemia Current Visit: Yes Status: Acute (2) Alcohol abuse Current Visit: Yes Status: Acute (3) Chest pain Current Visit: Yes Status: Acute Qualifiers: Chest pain type: unspecified Qualified Code(s): R07.9 - Chest pain, unspecified (4) Uncontrolled hypertension Current Visit: Yes Status: Acute Subjective Date of service: 07/22/18 Principal diagnosis: chest pain, CAD, alcohol abuse Objective - Constitutional Vitals: Vital Signs - 12hr 07/22/18 07/22/18 07/22/18 04:21 05:00 05:28 Temperature Pulse Rate 64 65 64 Respiratory 18 Rate Blood Pressure 116/75 Blood Pressure 116/75 [Left] O2 Sat by Pulse 97 Oximetry 07/22/18 07/22/18 06:16 07:24 Temperature 98.4 F Pulse Rate 73 68 Respiratory 18 20 Rate Blood Pressure Blood Pressure 132/82 121/81 [Left] O2 Sat by Pulse 99 96 Oximetry - Labs CBC & Chem 7: 07/18/18 13:11 07/21/18 04:44
--- NOTE | 2018-07-22 17:13 | Progress Note ---
Subjective - Reason for Consult Consult date: 07/22/18 Reason for consult: follow up - Chief Complaint Chief complaint: "The doctor wants me discharged so I can go kill myself." 57 y.o. AA male who presented to the hospital for chest pain. Psychiatry was consulted to see the patient for SI's. Today the patient patient is calm and cooperative during the assessment. He continues to endorse SI's. He states he sees people and talks to them. He states he experienced the same AVH when his mother . He was talkative during the interview. He expressed how depressed he is and how he stopped taking care of himself when his . He said he hasn't been sleeping well for years and the ativan he received allowed him to have good sleep last night. He talked about how he previously weighed 220lbs and now he is around 130. He states he will kill himself if he goes home, but later says he would have hope for his situation if he knew he had mental health services, to include professional counseling and psychiatry. His son is reported to have taken his gun and sharp items out of his home. He says he normally takes 200mg bid of thorazine for intractable hiccups and anything less is nothing. He wants to try zyprexa again for depression and to boost his appetite. Mental Status Exam - Vital signs Last Vital Signs Temp 98.4 F 07/22/18 07:24 Pulse 68 07/22/18 07:24 Resp 20 07/22/18 07:24 BP 121/81 07/22/18 07:24 Pulse Ox 96 07/22/18 07:24 Assessment and Plan - Exam Narrative exam: MSE: Appearance: calm, cooperative Behavior: regular eye contact Speech: talkative Mood: withdrawn Affect: flat Thought Process: circumstantial Thought Content: denies HI's and AVH's Motor Activity: sitting up in bed Cognition: A/O x 3 Insight: fair Judgment: poor Assessment and Plan Impression: MDD, Severe Type. Insomnia. Alcohol Intoxication on arrival to ER. Today the patient patient is calm and cooperative during the assessment. The patient is still endorsing SI's.He states he sees people and talks to them. He states he experienced the same AVH when his mother . He was informed placement is hindered by his medical conditions, such as use of oxygen. We discussed the type of services he could receive outpatient for mental health and substance abuse. DDx: R/O Bipolar DO, R/O Alcohol Induced Mood DO Recommendation/Plan: Continue 1013 and Zoloft 50 mg PO daily for depression and increase Trazodone to 100 mg PO HS for sleep. -start zyprexa zydis 5mg hs for mood/psychotic symptoms. Dispo: The patient is referred to inpatient psy services. . Will staff with Dr Almeida.
[2018-07-22] MEDS: DESYREL PO SCH (21:31)
[2018-07-23] MEDS: NITRO-BID 2% TP SCH (05:51)
[2018-07-23] MEDS: APRESOLINE PO SCH ×2 (09:55→22:35)
[2018-07-23] MEDS: NORVASC PO SCH (09:55)
[2018-07-23] MEDS: ASPIRIN PO SCH (09:57)
[2018-07-23] MEDS: PEPCID PO SCH (09:57)
[2018-07-23] MEDS: LOPRESSOR PO SCH ×2 (09:57→22:35)
[2018-07-23] MEDS: ZESTRIL PO SCH (09:57)
[2018-07-23] MEDS: ATIVAN PO PRN ×2 (09:57→22:31)
[2018-07-23] MEDS: ZOLOFT PO SCH (09:57)
--- NOTE | 2018-07-23 17:31 | Progress Note ---
Assessment and Plan Pt is a 57 y/o male who has a history of coronary artery disease, hypertension, alcohol abuse, presented to the Ed on account dull retrostersnl chest pain that was associated with shortness of breah and diaphoresis. No radiatory and no or htopnea, palpitaionor PND. Patient also stated that she is that he has been drinking a lot of alcohol since his in May 2018. He drinks about a pint a day. He wants to drink himself to he said. He used to have gone on himself however age and didn't fire. He has a history of bipolar disorder and suicide attempts in the past. Denies any auditory or visual hallucinations. Said he currently does not want to hurt himself anymore. On presenation to the Ed, EKG showd no specific changes. serial Jamar x 2 were normal. Had hypokalemia of 2.7. and had runs of K in the ED. CXR was unramarkable. CTA of the chest done b/c of elevate D-dimer was unremarkable. Admissin was requested for further w/u. Marketing Systems Analyst cancelled stress test because pt had a normal stress in 01/08/18. - Major depression with Suicidal ideation continue with Sertraline Psych consult and following pt Abating placement to inpt Psych unit . Pt has no payer source so placement is delayed - Bipolar disorder Psych consult - Chest pain resolved Nonspecific EKG changes and normal Serial Jamar x 2 Continue with oxygen ASA, NTG, morphine Physical stress tests in January 2018 that showed normal stress with ejection fraction of 62% - Coronary artery disease status post stent placement in 2018 Continue aspirin, statins, lisinopril. - Alcohol abuse [place] protocol Alcoholism counseling was done - Hypokalemia - corrected recheck Mg and k levels Moderate protein calorie malnutrition Dietary consult - DVT ppx with lovenox - Dispostiion: Awaiting placement into in-pt Psych unit when bed available - Time spent: 25 minutes - Patient Problems (1) Acute hypokalemia Current Visit: Yes Status: Acute (2) Alcohol abuse Current Visit: Yes Status: Acute (3) Chest pain Current Visit: Yes Status: Acute Qualifiers: Chest pain type: unspecified Qualified Code(s): R07.9 - Chest pain, unspecified (4) Uncontrolled hypertension Current Visit: Yes Status: Acute Subjective Date of service: 07/23/18 Principal diagnosis: chest pain, CAD, alcohol abuse Interval history: Patient was set to be had in voices from his . He also wants to go out of the room to join to train that he heard passing by. Wants regular diet not cardiac diet Objective - Exam Narrative Exam: Constitutional: Well-nourished well-developed. In no distress Head: Normocephalic atraumatic Eyes: Pupils are equal round and reactive to light Nose: No enlarged turbinates, no septal deviation. Mouth: Moist mucous membranes. Neck: Supple no thyromegaly. No bruit. No JVD Heart: Regular rate and rhythm, S1-S2 normal. No rubs murmurs or gallop Lungs: Clear to auscultation bilaterally. no rales or rhonchi Abdomen: Soft, nontender. Bowel sound are present. Extremities: No edema, no cyanosis, no clubbing. Neuro: Alert oriented Oriented x3. No focal sensory or motor deficit. Skin: No rashes or hyperpigmented spots Musculoskeletal system: No joint pain or swelling Hematological: No petechia or subcutanous hemorrhages. Immunological: No multiple septic spots on the skin Lymphatic: No generalized lymphadenopathy Psychiatry: Still has depressed affect. Has Suicidal or homicidal ideation. Has Visual and auditory hallucination. - Constitutional Vitals: Vital Signs - 12hr 07/23/18 07/23/18 07/23/18 05:51 09:45 16:00 Temperature 98.4 F 98.4 F Pulse Rate 59 L 70 64 Respiratory 18 20 Rate Blood Pressure 101/64 Blood Pressure 105/71 112/80 [Left] O2 Sat by Pulse 95 99 Oximetry - Labs CBC & Chem 7: 07/18/18 13:11 07/21/18 04:44
--- NOTE | 2018-07-23 17:55 | Progress Note ---
Assessment and Plan - Patient Problems (1) Acute hypokalemia Current Visit: Yes Status: Acute (2) Alcohol abuse Current Visit: Yes Status: Acute (3) Chest pain Current Visit: Yes Status: Acute Qualifiers: Chest pain type: unspecified Qualified Code(s): R07.9 - Chest pain, unspecified (4) Uncontrolled hypertension Current Visit: Yes Status: Acute Subjective Date of service: 07/23/18 Principal diagnosis: chest pain, CAD, alcohol abuse Objective - Constitutional Vitals: Vital Signs - 12hr 07/23/18 07/23/18 09:45 16:00 Temperature 98.4 F 98.4 F Pulse Rate 70 64 Respiratory 18 20 Rate Blood Pressure 105/71 112/80 [Left] O2 Sat by Pulse 95 99 Oximetry - Labs CBC & Chem 7: 07/18/18 13:11 07/21/18 04:44
[2018-07-23] MEDS: THORAZINE PO PRN (22:31)
[2018-07-23] MEDS: DESYREL PO SCH (22:35)
[2018-07-24] MEDS: NITRO-BID 2% TP SCH (06:02)
[2018-07-24] MEDS: ATIVAN PO PRN ×2 (10:21→21:29)
[2018-07-24] MEDS: ASPIRIN PO SCH (10:22)
[2018-07-24] MEDS: ZOLOFT PO SCH (10:22)
[2018-07-24] MEDS: PEPCID PO SCH (10:22)
--- NOTE | 2018-07-24 11:08 | Progress Note ---
Subjective - Reason for Consult Consult date: 07/24/18 Reason for consult: Psychiatry Follow-up - Chief Complaint Chief complaint: "I feel much better"." 57 y.o. AA male who presented to the hospital for chest pain. Psychiatry was consulted to see the patient for SI's. Today the patient patient is calm and cooperative during the assessment. He stated that some of his family came by the hospital and saw him yesterday. He stated that he does not feel alone anymore. He stated that his SI's are "almost none existed." He stated the he slept well last night for the first time in months. He denies HI's and AVH's. He denies any side effects of his medications. Mental Status Exam - Vital signs Last Vital Signs Temp 98.4 F 07/24/18 04:16 Pulse 62 07/24/18 04:16 Resp 20 07/24/18 04:16 BP 126/84 07/24/18 04:16 Pulse Ox 98 07/24/18 04:16 - Exam Narrative exam: MSE: Appearance: calm, cooperative Behavior: regular eye contact Speech: regular rate and low tone Mood: "better" Affect: congruent to mood Thought Process: linear Thought Content: denies HI's and AVH's Motor Activity: sitting up in bed Cognition: A/O x 3 Insight: fair Judgment: fair Assessment and Plan Impression: MDD, Severe Type. Insomnia. Alcohol Intoxication on arrival to ER. Today the patient patient is calm and cooperative during the assessment. DDx: R/O Bipolar DO, R/O Alcohol Induced Mood DO Recommendation/Plan: Reevaluate 1013 in 24 hours and continue Zoloft 50 mg PO daily for depression and iTrazodone to 100 mg PO HS for sleep. Discussed possible suidclaity/medication induced vic with the patient reference antidepressants. Also, discussed possible priapism with the patient reference Trazodone. Dispo: If the patient's 1013 is rescinded, he can follow up with [facility] for outpatient psy services. . Staffed with Dr Elisa Turner.
[2018-07-24] MEDS: THORAZINE PO PRN (11:33)
[2018-07-24] MEDS: ZESTRIL PO SCH (11:35)
[2018-07-24] MEDS: APRESOLINE PO SCH ×2 (11:36→21:29)
[2018-07-24] MEDS: LOPRESSOR PO SCH ×2 (11:36→21:29)
[2018-07-24] MEDS: NORVASC PO SCH (13:33)
--- NOTE | 2018-07-24 15:55 | Progress Note ---
Assessment and Plan Pt is a 57 y/o male who has a history of coronary artery disease, hypertension, alcohol abuse, presented to the Ed on account dull retrostersnl chest pain that was associated with shortness of breah and diaphoresis. No radiatory and no or htopnea, palpitaionor PND. Patient also stated that she is that he has been drinking a lot of alcohol since his in May 2018. He drinks about a pint a day. He wants to drink himself to he said. He used to have gone on himself however age and didn't fire. He has a history of bipolar disorder and suicide attempts in the past. Denies any auditory or visual hallucinations. Said he currently does not want to hurt himself anymore. On presenation to the Ed, EKG showd no specific changes. serial Jamar x 2 were normal. Had hypokalemia of 2.7. and had runs of K in the ED. CXR was unramarkable. CTA of the chest done b/c of elevate D-dimer was unremarkable. Admissin was requested for further w/u. Rags Laborer cancelled stress test because pt had a normal stress in 01/08/18. - Major depression with Suicidal ideation continue with Sertraline Psych consult and following pt Abating placement to inpt Psych unit . Pt has no payer source so placement is delayed - Bipolar disorder Psych consult - Chest pain resolved Nonspecific EKG changes and normal Serial Jamar x 2 Continue with oxygen ASA, NTG, morphine Physical stress tests in January 2018 that showed normal stress with ejection fraction of 62% - Coronary artery disease status post stent placement in 2018 Continue aspirin, statins, lisinopril. - Alcohol abuse [facility] protocol Alcoholism counseling was done - Hypokalemia - corrected recheck Mg and k levels Moderate protein calorie malnutrition Dietary consult - DVT ppx with lovenox - Disposition: Awaiting placement into in-pt Psych unit when bed available - Time spent: 25 minutes - Patient Problems (1) Acute hypokalemia Current Visit: Yes Status: Acute (2) Alcohol abuse Current Visit: Yes Status: Acute (3) Chest pain Current Visit: Yes Status: Acute Qualifiers: Chest pain type: unspecified Qualified Code(s): R07.9 - Chest pain, unspecified (4) Uncontrolled hypertension Current Visit: Yes Status: Acute Subjective Date of service: 07/24/18 Principal diagnosis: chest pain, CAD, alcohol abuse Interval history: Patient was set to be had in voices from his . No more voiceds. Wants regular diet not cardiac diet Objective - Exam Narrative Exam: Constitutional: Well-nourished well-developed. In no distress Head: Normocephalic atraumatic Eyes: Pupils are equal round and reactive to light Nose: No enlarged turbinates, no septal deviation. Mouth: Moist mucous membranes. Neck: Supple no thyromegaly. No bruit. No JVD Heart: Regular rate and rhythm, S1-S2 normal. No rubs murmurs or gallop Lungs: Clear to auscultation bilaterally. no rales or rhonchi Abdomen: Soft, nontender. Bowel sound are present. Extremities: No edema, no cyanosis, no clubbing. Neuro: Alert oriented Oriented x3. No focal sensory or motor deficit. Skin: No rashes or hyperpigmented spots Musculoskeletal system: No joint pain or swelling Hematological: No petechia or subcutanous hemorrhages. Immunological: No multiple septic spots on the skin Lymphatic: No generalized lymphadenopathy Psychiatry: Still has depressed affect. Has Suicidal or homicidal ideation. Has Visual and auditory hallucination. - Constitutional Vitals: Vital Signs - 12hr 07/24/18 07/24/18 07/24/18 04:16 11:35 12:45 Temperature 98.4 F 97.5 F L Pulse Rate 62 70 70 Respiratory 20 16 Rate Blood Pressure 155/93 Blood Pressure 126/84 155/93 [Left] O2 Sat by Pulse 98 95 Oximetry 07/24/18 13:33 Temperature Pulse Rate 70 Respiratory Rate Blood Pressure 114/77 Blood Pressure 114/77 [Left] O2 Sat by Pulse 97 Oximetry - Labs CBC & Chem 7: 07/18/18 13:11 07/21/18 04:44
[2018-07-24] MEDS: ALUM-MAG HYDROX-SIMETH 200-200-20MG/5ML PO PRN (21:28)
[2018-07-24] MEDS: DESYREL PO SCH (21:29)
[2018-07-25] MEDS: NITRO-BID 2% TP SCH (05:35)
[2018-07-25] MEDS: THORAZINE PO PRN (08:25)
[2018-07-25] MEDS: ALUM-MAG HYDROX-SIMETH 200-200-20MG/5ML PO PRN (08:26)
[2018-07-25] MEDS: NORVASC PO SCH (09:15)
[2018-07-25] MEDS: ZOLOFT PO SCH (09:23)
[2018-07-25] MEDS: ASPIRIN PO SCH (09:23)
[2018-07-25] MEDS: PEPCID PO SCH (09:23)
[2018-07-25] MEDS: ATIVAN PO PRN (09:23)
[2018-07-25] MEDS: APRESOLINE PO SCH (10:02)
[2018-07-25] MEDS: LOPRESSOR PO SCH (12:00)
[2018-07-25] MEDS: ZESTRIL PO SCH (12:01)
--- NOTE | 2018-07-25 15:36 | Progress Note ---
Subjective - Reason for Consult Consult date: 07/25/18 Reason for consult: Psychiatry Follow-up - Chief Complaint Chief complaint: "I feel good" 57 y.o. AA male who presented to the hospital for chest pain. Psychiatry was consulted to see the patient for SI's. Today the patient patient is calm and cooperative during the assessment. He stated that he look forward to being discharged. He stated that he will follow up with outpatient psy services. He denies SI/HI's and AVH's. He denies any side effects of his medications. Mental Status Exam - Vital signs Last Vital Signs Temp 97.5 F L 07/25/18 11:23 Pulse 90 07/25/18 11:23 Resp 20 07/25/18 11:23 BP 112/66 07/25/18 12:00 Pulse Ox 98 07/25/18 11:23 - Exam Narrative exam: MSE: Appearance: calm, cooperative Behavior: regular eye contact Speech: regular rate and low tone Mood: "much betterr" Affect: congruent to mood Thought Process: linear Thought Content: denies HI's and AVH's Motor Activity: sitting up in bed Cognition: A/O x 3 Insight: appropriate Judgment: appropriate Assessment and Plan Impression: MDD, Severe Type. Insomnia. Alcohol Intoxication on arrival to ER. Today the patient patient is calm and cooperative during the assessment. The patient is no threat to self. DDx: R/O Bipolar DO, R/O Alcohol Induced Mood DO Suicide Risk Assessment I. This screening and assessment is based on information collected from the following sources: II. SUICIDE RISK SCREENING (within last 30 days): A.) Suicidal thoughts/behaviors: Yes SUICIDE RISK ASSESSMENT III. FACTORS THAT INCREASE RISK: A.) Demographic and Substance Use Factors: Yes (Marijuana). B.) Current/Recent Factors (within past 3 months): Psychosocial/Environmental Factors: Complicated Grieving Physical Illness: None Cognitive/Psychological Factors: None C.) Historical Factors: None D.) Diagnostic/Symptom/Treatment Factors: None E.) Acute Risk Factor Severity (DESC; MILD/MOD/SEVERE): Mild Other factors for this individual that increase risk: None IV. FACTORS THAT DECREASE RISK: Resilience/Protective Factors: Patient want to cope with the of his Other factors for this individual that decrease risk: Patient denies a desire to harm self V. Clinician's Formulation of Risk and Determination of level of Care: This is a 57 y.o. AA male who consumed a large amount of alcohol and put a gun to his chin and pulled the trigger prior to his arrival to the ER. He stated that his actions were unsafe. He stated that he should have reached out for help per the crisis hotline. He stated that he will follow-up with outpatient psy services once discharged. Additionally, he has become insightful about how to better address his current issues. The patient is not impaired by substance. He is able to take care of his ADLs and is not at imminent risk of harm to self or others. Consequently, it is the opinion of the treatment team that the patient is at low risk of suicide and does not meet criteria to continue an involuntary psychiatric hold. Estimation of Imminent Risk: Low due to the above explanation. Determination of Level of Care based on Suicide Risk: Outpatient follow-up. Narrative description of clinical reasoning. Given the fact that the patient is willing to engage in outpatient psy services care, it is reasonable to expect that the patient will seek services. At this current time, he is not impulsive and does not have any risk factors to increase the likelihood of his impulsive behavior. Therefore, it is reasonable to expect that the patient will engage in outpatient psy services which will reduce further unsafe behaviors. . Plan and Interventions based on Suicide Risk: This patient will likely be stepped down to an outpatient mental health center in the community upon discharge and follow-up within 7 days of his discharge from the hospital. VII. Discharge/After Hours Support Plan: Patient can return back to the ER, call 911 or crisis line if symptoms of depression, anxiety, suicidality return. Recommendation/Plan: Rescind 1013 and continue Zoloft 50 mg PO daily for depression and iTrazodone to 100 mg PO HS for sleep. Discussed possible suidclaity/medication induced vic with the patient reference antidepressants. Also, discussed possible priapism with the patient reference Trazodone. Discussed the importance to abstain from excessive alcohol consumption (etoh). A safety contract was completed with the patient. Dispo: The patient can follow up with [facility] for outpatient psy services. . Staffed with Dr Joselito Turner.
[2018-07-25 16:16] VITALS: BP 103/64
--- NOTE | 2018-07-25 17:15 | Progress Note ---
Assessment and Plan Pt is a 57 y/o male who has a history of coronary artery disease, hypertension, alcohol abuse, presented to the Ed on account dull retrostersnl chest pain that was associated with shortness of breah and diaphoresis. No radiatory and no or htopnea, palpitaionor PND. Patient also stated that she is that he has been drinking a lot of alcohol since his in May 2018. He drinks about a pint a day. He wants to drink himself to he said. He used to have gone on himself however age and didn't fire. He has a history of bipolar disorder and suicide attempts in the past. Denies any auditory or visual hallucinations. Said he currently does not want to hurt himself anymore. On presenation to the Ed, EKG showd no specific changes. serial Jamar x 2 were normal. Had hypokalemia of 2.7. and had runs of K in the ED. CXR was unramarkable. CTA of the chest done b/c of elevate D-dimer was unremarkable. Admissin was requested for further w/u. Import/Export Agent cancelled stress test because pt had a normal stress in 01/08/18. - Major depression with Suicidal ideation continue with Sertraline Psych consult and following pt Abating placement to inpt Psych unit . Pt has no payer source so placement is delayed - Bipolar disorder Psych consult - Chest pain resolved Nonspecific EKG changes and normal Serial Jamar x 2 Continue with oxygen ASA, NTG, morphine Physical stress tests in January 2018 that showed normal stress with ejection fraction of 62% - Coronary artery disease status post stent placement in 2018 Continue aspirin, statins, lisinopril. - Alcohol abuse [facility] protocol Alcoholism counseling was done - Hypokalemia - corrected recheck Mg and k levels Moderate protein calorie malnutrition Dietary consult - DVT ppx with lovenox - Disposition: Awaiting placement into in-pt Psych unit when bed available - Time spent: 25 minutes - Patient Problems (1) Acute hypokalemia Current Visit: Yes Status: Acute (2) Alcohol abuse Current Visit: Yes Status: Acute (3) Chest pain Current Visit: Yes Status: Acute Qualifiers: Chest pain type: unspecified Qualified Code(s): R07.9 - Chest pain, unspecified (4) Uncontrolled hypertension Current Visit: Yes Status: Acute Subjective Date of service: 07/25/18 Principal diagnosis: chest pain, CAD, alcohol abuse Interval history: Patient was set to be had in voices from his . No more hearing voices. Wants regular diet not cardiac diet Objective - Exam Narrative Exam: Constitutional: Well-nourished well-developed. In no distress Head: Normocephalic atraumatic Eyes: Pupils are equal round and reactive to light Nose: No enlarged turbinates, no septal deviation. Mouth: Moist mucous membranes. Neck: Supple no thyromegaly. No bruit. No JVD Heart: Regular rate and rhythm, S1-S2 normal. No rubs murmurs or gallop Lungs: Clear to auscultation bilaterally. no rales or rhonchi Abdomen: Soft, nontender. Bowel sound are present. Extremities: No edema, no cyanosis, no clubbing. Neuro: Alert oriented Oriented x3. No focal sensory or motor deficit. Skin: No rashes or hyperpigmented spots Musculoskeletal system: No joint pain or swelling Hematological: No petechia or subcutanous hemorrhages. Immunological: No multiple septic spots on the skin Lymphatic: No generalized lymphadenopathy Psychiatry: Still has depressed affect. Has Suicidal or homicidal ideation. Has Visual and auditory hallucination. - Constitutional Vitals: Vital Signs - 12hr 07/25/18 07/25/18 07/25/18 06:19 09:15 11:23 Temperature 98 F 97.5 F L Pulse Rate 70 67 90 Respiratory 20 20 Rate Blood Pressure 108/71 Blood Pressure 131/69 108/71 112/66 [Left] O2 Sat by Pulse 97 98 Oximetry 07/25/18 07/25/18 12:00 16:15 Temperature 98.4 F Pulse Rate 75 Respiratory 20 Rate Blood Pressure 112/66 Blood Pressure 103/64 [Left] O2 Sat by Pulse 99 Oximetry - Labs CBC & Chem 7: 07/18/18 13:11 07/21/18 04:44
--- NOTE | 2018-07-25 17:58 | Discharge Summary ---
Providers - Providers Date of Admission: 07/18/18 04:53 Date of discharge: 07/25/18 Attending physician: VÍCTOR LAURA 07/18/18 08:46 Consult to Mental Health [CONS] Stat Reason For Exam: suicidal idealation Place consult to:: mental health Notified:: Jonny Phone number called:: [phone] Was contact made?: Yes If yes, spoke with:: Elis Time called:: 08:56 Comment:: Patient state his goal is to kill himself Primary care physician: KIAH ALVES Hospitalization Reason for admission: chest pain Condition: Stable Pertinent studies: CXR ws unremarkable CT chest showed no PE EKG showed no acute event Procedures: none Hospital course: Pt is a 57 y/o male who has a history of coronary artery disease, hypertension, alcohol abuse, presented to the Ed on account dull retrostersnl chest pain that was associated with shortness of breath and diaphoresis. None radiatory and no orthopnea, palpitation or PND. Patient also stated that he has been drinking a lot of alcohol since his in May 2018. He drinks about a pint a day. He wants to drink himself to he said. He used a gun on his head. However it did not fire. He has a history of bipolar disorder and suicide attempts in the past. Denies any auditory or visual hallucinations. Said he currently does not want to hurt himself anymore. On presenation to the Ed, EKG showed none specific changes. serial Jamar x 2 were normal. Had hypokalemia of 2.7. and had runs of K in the ED. CXR was unramarkable. CTA of the chest done b/c of elevate D-dimer was unremarkable. On admission and was commenced on oxygen and nitroglycerin aspirin and morphine, CIWA protocol with Ativan, and was placed on 1013. Psych consult was obtained. Patient was commenced on Zoloft. He stated he no longer wants to hurt himself. Chest pain resolved. 1013 was rescinted Patient therefore is being discharged to his daughter home. Cardiology consult was obtained for stress test. However this was canceled by the furniture duster who said that he had a normal Lexiscan stress test in January 2018. [facility]. Counseling against alcohol and tobacco use was done. Disposition: DC-01 TO HOME OR SELFCARE - Discharge Diagnoses (1) Acute hypokalemia Status: Acute (2) Alcohol abuse Status: Acute (3) Chest pain Status: Acute Qualifiers: Chest pain type: unspecified Qualified Code(s): R07.9 - Chest pain, unspecified (4) Uncontrolled hypertension Status: Acute Core Measure Documentation - Palliative Care Palliative Care/ Comfort Measures: Not Applicable - Core Measures Any of the following diagnoses?: none Exam - Physical Exam Narrative exam: Constitutional: Well-nourished well-developed.In no distress Head: Normocephalic atraumatic Eyes: Pupils are equal round and reactive to light Nose: No enlarged turbinates, no septal deviation. Mouth: Moist mucous membranes. Neck: Supple no thyromegaly. No bruit. No JVD Heart: Regular rate and rhythm, S1-S2 normal. No rubs murmurs or gallop Lungs: Clear to auscultation bilaterally. no rales or rhonchi Abdomen: Soft, nontender. Bowel sound are present. Extremities: No edema, no cyanosis, no clubbing. Neuro: Alert oriented Oriented x3. No focal sensory or motor deficit. Skin: No rashes or hyperpigmented spots Musculoskeletal system: No joint pain or swelling Hematological: No petechia or subcutanous hemorrhages. Immunological: No multiple septic spots on the skin Lymphatic: No generalized lymphadenopathy Psychiatry: Still has depressed affect. Has Suicidal or homicidal ideation. Has Visual and auditory hallucination. - Constitutional Vitals: Temp Pulse Resp BP Pulse Ox 98.4 F 75 20 103/64 99 07/25/18 16:15 07/25/18 16:15 07/25/18 16:15 07/25/18 16:15 07/25/18 16:15 Plan Activity: advance as tolerated, fall precautions Weight Bearing Status: Weight Bear as Tolerated Diet: low cholesterol, low salt Follow up with: VÍCTOR LAURA MD [Staff Physician] - 3 Days KIAH ALVES MD [Primary Care Provider] - 14 Days Prescriptions: amLODIPine [Norvasc] 10 mg PO QDAY #30 tablet Aspirin [Aspirin TAB] 81 mg PO QDAY #30 tablet Famotidine [Pepcid] 20 mg PO QDAY #30 tablet hydrALAZINE [Apresoline TAB] 100 mg PO BID #60 tab Lisinopril [Zestril TAB] 40 mg PO QDAY #30 tablet LORazepam [Ativan] 2 mg PO Q1H PRN #10 tablet PRN Reason: MILYIL-[place] 8 Metoprolol [Lopressor TAB] 100 mg PO BID #60 tablet Sertraline [Zoloft] 50 mg PO QDAY #30 tablet traZODone [Desyrel] 50 mg PO QHS #30 tablet
== END 2018-07-25 19:00 | disposition home or self-care (01) | DRG 641 ==
LOC: ED 21:59 → 4A 07-18 04:53 → 3A 07-24 09:31
PROVIDERS: ADMIT Family Medicine; ATTEND Family Medicine
DX: E87.6 Hypokalemia (principal); R07.9 Chest pain, unspecified; I25.10 Atherosclerotic heart disease of native coronary artery without angina pectoris; I10 Essential (primary) hypertension; F10.10 Alcohol abuse, uncomplicated; F32.9 Major depressive disorder, single episode, unspecified; Y90.0 Blood alcohol level of less than 20 mg/100 ml; F12.10 Cannabis abuse, uncomplicated; F17.200 Nicotine dependence, unspecified, uncomplicated; E83.51 Hypocalcemia; K21.9 Gastro-esophageal reflux disease without esophagitis; Z95.5 Presence of coronary angioplasty implant and graft; Z82.49 Family history of ischemic heart disease and other diseases of the circulatory system; Z91.010 Allergy to peanuts; Z79.82 Long term (current) use of aspirin; Z79.899 Other long term (current) drug therapy; I25.2 Old myocardial infarction; Z71.6 Tobacco abuse counseling; Z71.41 Alcohol abuse counseling and surveillance of alcoholic
CPT/HCPCS: 36415; 71045; 71275; 80048; 80053; 80307; 80320; 81001; 82962; 83690; 83735; 84100; 84484; 85025; 85379; 85610; 85730; 93005; 93010; 94760; 96374; 99285; G0378; C9113; G0480; J0360; J0610; J3480; J7030; Q0161; Q9967

== ENCOUNTER 2018-07-28 11:30 | Emergency (ER) | payer SELFPAY ==
[2018-07-28] MEDS ORDERED: NACL 0.9% 1000 ML 1,000 ML IV ONE ×2 (11:37→13:09)
[2018-07-28] MEDS ORDERED: ZOFRAN IV ONE (11:38)
[2018-07-28 11:52] VITALS: BP 125/91
--- NOTE | 2018-07-28 11:52 | Emergency Department Report ---
ED General Adult HPI - General Stated complaint: BODY PAIN Time Seen by Provider: 07/28/18 11:37 - History of Present Illness Initial comments: Mr. Garcia is 57 yo male with hx of CAD, HTN, phrenic nerve palsy, bipolar disorder who presents with diffuse body pain. Since recent discharge, he has had diffuse body pain. Has had difficulty keeping down Ensure. Has had 100+ pound weight loss over the past 2-3 years. He feels dehydrated. Has been unab le to have medications filled since discharge because he has little support. He has been grieving the of his who from lung cancer in May. No SI/HI. +depressed mood -: Gradual, days(s) (several ) Location: head, abdomen Quality: burning, aching Consistency: constant Worsens with: eating Associated Symptoms: malaise, nausea/vomiting - Related Data Previous Rx's Medication Instructions Recorded Last Taken Type Aspirin 81 mg PO DAILY #30 tab.chew 01/09/18 07/16/18 12:00 Rx Lisinopril [Zestril TAB] 40 mg PO QDAY #30 tablet 01/09/18 07/16/18 12:00 Rx Metoprolol [Lopressor TAB] 100 mg PO BID #60 tablet 01/09/18 07/16/18 12:00 Rx amLODIPine [Norvasc] 10 mg PO DAILY #30 tab 01/09/18 07/16/18 12:00 Rx hydrALAZINE [Apresoline TAB] 100 mg PO BID #60 tablet 01/09/18 07/16/18 12:00 Rx 100mg Aspirin [Aspirin TAB] 81 mg PO QDAY #30 tablet 07/20/18 Unknown Rx Famotidine [Pepcid] 20 mg PO QDAY #30 tablet 07/20/18 Unknown Rx LORazepam [Ativan] 2 mg PO Q1H PRN #10 tablet 07/20/18 Unknown Rx Lisinopril [Zestril TAB] 40 mg PO QDAY #30 tablet 07/20/18 Unknown Rx Metoprolol [Lopressor TAB] 100 mg PO BID #60 tablet 07/20/18 Unknown Rx Sertraline [Zoloft] 50 mg PO QDAY #30 tablet 07/20/18 Unknown Rx amLODIPine [Norvasc] 10 mg PO QDAY #30 tablet 07/20/18 Unknown Rx chlorproMAZINE [Thorazine] 25 mg PO BID PRN tablet 07/20/18 Unknown Rx hydrALAZINE [Apresoline TAB] 100 mg PO BID #60 tab 07/20/18 Unknown Rx traZODone [Desyrel] 50 mg PO QHS #30 tablet 07/20/18 Unknown Rx chlorproMAZINE [Thorazine] 25 mg PO BID PRN #60 tablet 07/25/18 Unknown Rx traZODone [Desyrel] 100 mg PO QHS #30 tablet 07/25/18 Unknown Rx Allergies Allergy/AdvReac Type Severity Reaction Status Date / Time peanut Allergy Unknown Verified 07/28/18 11:52 ED Review of Systems ROS: Stated complaint: BODY PAIN Other details as noted in HPI Comment: All other systems reviewed and negative Constitutional: denies: fever, malaise Respiratory: denies: cough Cardiovascular: denies: chest pain ED Past Medical Hx - Past Medical History Previous Medical History?: Yes Hx Hypertension: Yes Hx Heart Attack/AMI: Yes Hx GERD: Yes Hx Renal Disease: Yes (kindney failure) Hx Psychiatric Treatment: Yes (SI) Hx Asthma: Yes Additional medical history: cardiac prob. hep A, Sleep apnea - Surgical History Hx Open Heart Surgery: Yes Additional Surgical History: cardiac stent x1. right ankle screws. phrenic nerve - Social History Smoking Status: Former Smoker - Medications Home Medications: Home Medications Medication Instructions Recorded Confirmed Last Taken Type Aspirin 81 mg PO DAILY #30 tab.chew 01/09/18 07/18/18 07/16/18 12:00 Rx Lisinopril [Zestril TAB] 40 mg PO QDAY #30 tablet 01/09/18 07/18/18 07/16/18 12:00 Rx Metoprolol [Lopressor TAB] 100 mg PO BID #60 tablet 01/09/18 07/18/18 07/16/18 1 2:00 Rx amLODIPine [Norvasc] 10 mg PO DAILY #30 tab 01/09/18 07/18/18 07/16/18 12:00 Rx hydrALAZINE [Apresoline TAB] 100 mg PO BID #60 tablet 01/09/18 07/18/18 07/16/18 12:00 Rx 100mg Aspirin [Aspirin TAB] 81 mg PO QDAY #30 tablet 07/20/18 Unknown Rx Famotidine [Pepcid] 20 mg PO QDAY #30 tablet 07/20/18 Unknown Rx LORazepam [Ativan] 2 mg PO Q1H PRN #10 tablet 07/20/18 Unknown Rx Lisinopril [Zestril TAB] 40 mg PO QDAY #30 tablet 07/20/18 Unknown Rx Metoprolol [Lopressor TAB] 100 mg PO BID #60 tablet 07/20/18 Unknown Rx Sertraline [Zoloft] 50 mg PO QDAY #30 tablet 07/20/18 Unknown Rx amLODIPine [Norvasc] 10 mg PO QDAY #30 tablet 07/20/18 Unknown Rx chlorproMAZINE [Thorazine] 25 mg PO BID PRN tablet 07/20/18 Unknown Rx hydrALAZINE [Apresoline TAB] 100 mg PO BID #60 tab 07/20/18 Unknown Rx traZODone [Desyrel] 50 mg PO QHS #30 tablet 07/20/18 Unknown Rx chlorproMAZINE [Thorazine] 25 mg PO BID PRN #60 tablet 07/25/18 Unknown Rx traZODone [Desyrel] 100 mg PO QHS #30 tablet 07/25/18 Unknown Rx ED Physical Exam - General General appearance: alert, in no apparent distress, other (tearful, talkative) - Head Head exam: Present: atraumatic, normocephalic - Eye Eye exam: Present: normal appearance - ENT ENT exam: Present: mucous membranes moist - Neck Neck exam: Present: normal inspection, full ROM. Absent: tenderness, meningismus - Respiratory Respiratory exam: Present: normal lung sounds bilaterally. Absent: respiratory distress, wheezes, rales, rhonchi - Cardiovascular Cardiovascular Exam: Present: regular rate, normal rhythm, normal heart sounds. Absent: systolic murmur, diastolic murmur, rubs, gallop - GI/Abdominal GI/Abdominal exam: Present: soft, normal bowel sounds. Absent: distended, tenderness, guarding, rebound - Rectal Rectal exam: Present: deferred - Extremities Exam Extremities exam: Present: normal inspection - Back Exam Back exam: Present: normal inspection - Neurological Exam Neurological exam: Present: alert, oriented X3 - Psychiatric Psychiatric exam: Present: normal affect, normal mood - Skin Skin exam: Present: warm, dry, intact, normal color. Absent: rash ED Course Vital Signs 07/28/18 11:30 Temperature 99 F Pulse Rate 99 H Respiratory 18 Rate Blood Pressure 125/91 O2 Sat by Pulse 97 Oximetry ED Medical Decision Making - Lab Data Result diagrams: 07/28/18 11:44 07/28/18 11:44 - Medical Decision Making Mr. Garcia presents with diffuse abdominal pain and poor by mouth intake. He explains that normally he is able to keep down fluids for 3-4 hours before hicc ups began. Now for neck nerve palsy appears to have worsened over the last several months. Now he vomits 30 minutes after eating. During his recent ED and inpatient encounter, he was being evaluated by the psychiatry service for suicidal idation. Hospitalist service was asked to evaluation Mr. Garcia for hypokalemia and hypomagnesemia. GFR has decreased in the past 10 days. Creatinine trending from 0.9 to 1.9 I discussed case with Dr. Laura who is very familiar with the patient. He has treated the patient during the last 3 previous admissions. He recommended IV hydration in the ED and discharged home. I discussed the plan with Mr. Garcia. He felt much better after receiving IV fluid and felt comfortable to be discharged home. Mr. Garcia did not have any observed vomiting in the ED. Critical care attestation.: If time is entered above; I have spent that time in minutes in the direct care of this critically ill patient, excluding procedure time. ED Disposition Clinical Impression: Acute kidney injury, Dehydration Disposition: DC-01 TO HOME OR SELFCARE Is pt being admited?: No Does the pt Need Aspirin: No Condition: Stable Instructions: Dehydration (ED) Referrals: VÍCTOR LAURA MD [Staff Physician] - 3-5 Days
[2018-07-28 11:54] LABS: Hematocrit 42.4 % (35.5-45.6); Hemoglobin 14.6 gm/dl (11.8-15.2); Mean Corpuscular HGB Conc 35 % (32-34); Mean Corpuscular Volume 92 fl (84-94); Red Blood Count 4.62 M/mm3 (3.65-5.03); Red Cell Distribution Width 14.4 % (13.2-15.2)
[2018-07-28 11:57] LABS: Platelet Count 209 K/mm3 (140-440)
[2018-07-28 12:08] LABS: Albumin 4.4 g/dL (3.9-5); Bilirubin,Direct 0.2 mg/dL (0-0.2); Calcium 9.8 mg/dL (8.4-10.2)
[2018-07-28 13:21] LABS: Basophils % (Manual) 0 % (0.0-1.8); Eosinophils % (Manual) 0 % (0.0-4.3); Total Cells Counted 100
[2018-07-28 13:24] LABS: Anisocytosis 1+; Large Platelets Few; Macrocytosis 1+; Ovalocytes Few; Platelet Estimate Consistent w Auto; Target Cells Rare
[2018-07-28] MEDS ORDERED: TYLENOL PO ONE ×3 (13:39→13:40)
== END 2018-07-28 14:13 | disposition home or self-care (01) ==
LOC: ED 11:30
DX: N17.9 Acute kidney failure, unspecified (principal); E86.0 Dehydration; I10 Essential (primary) hypertension; I25.2 Old myocardial infarction; K21.9 Gastro-esophageal reflux disease without esophagitis; J45.909 Unspecified asthma, uncomplicated
CPT/HCPCS: 36415; 80048; 80076; 83690; 85007; 85025; 96361; 96374; 99284; J2405; J7030

== ENCOUNTER 2019-03-07 11:59 | Outpatient (CLI) | payer OTHER | END 2019-03-07 12:00 | disposition home or self-care (01) | LOC: PF 11:59 | PROVIDERS: ATTEND Internal Medicine | DX: R06.02 Shortness of breath (principal); I10 Essential (primary) hypertension | CPT/HCPCS: 94729 ==

== ENCOUNTER 2021-11-30 19:06 | Emergency (ER) | payer MEDICAID ==
[2021-11-30] MEDS ORDERED: hydrALAZINE 20 MG/1 ML INJ IV ONE (20:01)
[2021-11-30 20:34] LABS: Basophils # (Auto) 0.1 K/mm3 (0.0-0.1); Eosinophils # (Auto) 0.1 K/mm3 (0.0-0.4); Eosinophils % (Auto) 2.5 % (0.0-4.3); Hematocrit 34.9 % (35.5-45.6); Hemoglobin 11.7 gm/dl (11.8-15.2); Lymphocytes # (Auto) 1.3 K/mm3 (1.2-5.4); Lymphocytes % (Auto) 35.3 % (13.4-35.0); Mean Corpuscular HGB Conc 33 % (32-34); Mean Corpuscular Volume 90 fl (84-94); Monocytes # (Auto) 0.5 K/mm3 (0.0-0.8); Monocytes % (Auto) 12.4 % (0.0-7.3); Platelet Count 253 K/mm3 (140-440); Red Blood Count 3.88 M/mm3 (3.65-5.03); Red Cell Distribution Width 14.7 % (13.2-15.2)
[2021-11-30 21:01] LABS: Albumin 4.2 g/dL (3.9-5); Calcium 9.3 mg/dL (8.4-10.2)
--- NOTE | 2021-11-30 21:22 | Emergency Department Report ---
ED General Adult HPI - General Chief complaint: Weakness Stated complaint: WEAKNESS,DIZZY Time Seen by Provider: 11/30/21 19:35 Source: patient, EMS Mode of arrival: Stretcher Limitations: No Limitations - History of Present Illness Initial comments: Patient is a 51-year-old male with history of chronic hiccups refractory to medications and phrenic nerve blocks in the past presenting with complaint of worsening hiccups. States he has been on the liquid diet and continues to take his prescribed medications. States he has lost weight due to inability to eat. - Related Data Previous Rx's Medication Instructions Recorded Last Taken Type Aspirin 81 mg PO DAILY #30 tab.chew 01/09/18 07/16/18 12:00 Rx Metoprolol [Lopressor TAB] 100 mg PO BID #60 tablet 01/09/18 07/16/18 12:00 Rx amLODIPine 10 mg PO DAILY #30 tab 01/09/18 07/16/18 12:00 Rx hydrALAZINE [Apresoline TAB] 100 mg PO BID #60 tablet 01/09/18 07/16/18 12:00 Rx 100 mg lisinopriL [Zestril TAB] 40 mg PO QDAY #30 tablet 01/09/18 07/16/18 12:00 Rx Aspirin 81 mg PO QDAY #30 tablet 07/20/18 Unknown Rx Famotidine [Pepcid] 20 mg PO QDAY #30 tablet 07/20/18 Unknown Rx LORazepam [Ativan] 2 mg PO Q1H PRN #10 tablet 07/20/18 Unknown Rx Metoprolol [Lopressor TAB] 100 mg PO BID #60 tablet 07/20/18 Unknown Rx Sertraline [Zoloft] 50 mg PO QDAY #30 tablet 07/20/18 Unknown Rx amLODIPine 10 mg PO QDAY #30 tablet 07/20/18 Unknown Rx chlorproMAZINE [Thorazine] 25 mg PO BID PRN tablet 07/20/18 Unknown Rx hydrALAZINE [Apresoline TAB] 100 mg PO BID #60 tab 07/20/18 Unknown Rx lisinopriL [Zestril TAB] 40 mg PO QDAY #30 tablet 07/20/18 Unknown Rx traZODone [Desyrel] 50 mg PO QHS #30 tablet 07/20/18 Unknown Rx chlorproMAZINE [Thorazine] 25 mg PO BID PRN #60 tablet 07/25/18 Unknown Rx traZODone [Desyrel] 100 mg PO QHS #30 tablet 07/25/18 Unknown Rx Albuterol Mdi (or & Nicu Only) 2 puff IH Q4HR PRN #1 inhalation 12/12/19 Unknown Rx [ProAir HFA Inhaler] Albuterol Sulfate [Albuterol 0.63% 0.63 mg IH Q4HR PRN #30 ml 12/12/19 Unknown Rx NEBS] chlorproMAZINE [Thorazine] 25 mg PO TID PRN #24 tab 12/12/19 Unknown Rx Gabapentin 300 mg PO DAILY #30 cap 11/30/21 Unknown Rx Pantoprazole [Protonix] 40 mg PO QDAY #30 tablet 11/30/21 Unknown Rx Allergies Allergy/AdvReac Type Severity Reaction Status Date / Time peanut Allergy Unknown Verified 07/28/18 11:52 ED Review of Systems ROS: Stated complaint: WEAKNESS,DIZZY Other details as noted in HPI Comment: All other systems reviewed and negative Constitutional: denies: chills, fever Respiratory: denies: cough, shortness of breath, wheezing Cardiovascular: denies: chest pain, palpitations Endocrine: no symptoms reported Musculoskeletal: denies: back pain, joint swelling, arthralgia Skin: denies: rash, lesions Neurological: other (Hiccups) Psychiatric: denies: anxiety, depression ED Past Medical Hx - Past Medical History Hx Hypertension: Yes Hx Heart Attack/AMI: Yes Hx GERD: Yes Hx Renal Disease: Yes (kindney failure) Hx Psychiatric Treatment: Yes (SI) Hx Asthma: Yes Additional medical history: cardiac prob. hep A, Sleep apnea - Surgical History Hx Open Heart Surgery: Yes Additional Surgical History: cardiac stent x1. right ankle screws. phrenic ner ve - Social History Smoking Status: Never Smoker Substance Use Type: Marijuana - Medications Home Medications: Home Medications Medication Instructions Recorded Confirmed Last Taken Type Aspirin 81 mg PO DAILY #30 tab.chew 01/09/18 07/18/18 07/16/18 12:00 Rx Metoprolol [Lopressor TAB] 100 mg PO BID #60 tablet 01/09/18 07/18/18 07/16/18 12:00 Rx amLODIPine 10 mg PO DAILY #30 tab 01/09/18 07/18/18 07/16/18 12:00 Rx hydrALAZINE [Apresoline TAB] 100 mg PO BID #60 tablet 01/09/18 07/18/18 07/16/18 12:00 Rx 100 mg lisinopriL [Zestril TAB] 40 mg PO QDAY #30 tablet 01/09/18 07/18/18 07/16/18 12:00 Rx Aspirin 81 mg PO QDAY #30 tablet 07/20/18 Unknown Rx Famotidine [Pepcid] 20 mg PO QDAY #30 tablet 07/20/18 Unknown Rx LORazepam [Ativan] 2 mg PO Q1H PRN #10 tablet 07/20/18 Unknown Rx Metoprolol [Lopressor TAB] 100 mg PO BID #60 tablet 07/20/18 Unknown Rx Sertraline [Zoloft] 50 mg PO QDAY #30 tablet 07/20/18 Unknown Rx amLODIPine 10 mg PO QDAY #30 tablet 07/20/18 Unknown Rx chlorproMAZINE [Thorazine] 25 mg PO BID PRN tablet 07/20/18 Unknown Rx hydrALAZINE [Apresoline TAB] 100 mg PO BID #60 tab 07/20/18 Unknown Rx lisinopriL [Zestril TAB] 40 mg PO QDAY #30 tablet 07/20/18 Unknown Rx traZODone [Desyrel] 50 mg PO QHS #30 tablet 07/20/18 Unknown Rx chlorproMAZINE [Thorazine] 25 mg PO BID PRN #60 tablet 07/25/18 Unknown Rx traZODone [Desyrel] 100 mg PO QHS #30 tablet 07/25/18 Unknown Rx Albuterol Mdi (or & Nicu Only) 2 puff IH Q4HR PRN #1 inhalation 12/12/19 Unknown Rx [ProAir HFA Inhaler] Albuterol Sulfate [Albuterol 0.63% 0.63 mg IH Q4HR PRN #30 ml 12/12/19 Unknown Rx NEBS] chlorproMAZINE [Thorazine] 25 mg PO TID PRN #24 tab 12/12/19 Unknown Rx Gabapentin 300 mg PO DAILY #30 cap 11/30/21 Unknown Rx Pantoprazole [Protonix] 40 mg PO QDAY #30 tablet 11/30/21 Unknown Rx ED Physical Exam - General Limitations: No Limitations General appearance: alert, in no apparent distress - Head Head exam: Present: atraumatic, normocephalic - Neck Neck exam: Present: normal inspection - Respiratory Respiratory exam: Present: normal lung sounds bilaterally. Absent: respiratory distress - Cardiovascular Cardiovascular Exam: Present: regular rate, normal rhythm, normal heart sounds - GI/Abdominal GI/Abdominal exam: Present: soft. Absent: distended, tenderness - Rectal Rectal exam: Present: deferred - Neurological Exam Neurological exam: Present: alert, oriented X3 - Psychiatric Psychiatric exam: Present: normal affect, normal mood - Skin Skin exam: Present: warm, dry, intact, normal color ED Course Vital Signs 11/30/21 11/30/21 19:38 20:49 Temperature 98.2 F Pulse Rate 76 75 Respiratory 16 Rate Blood Pressure 188/92 Blood Pressure 208/110 [Right] O2 Sat by Pulse 99 Oximetry ED Medical Decision Making - Lab Data Result diagrams: 11/30/21 20:03 11/30/21 20:03 - Medical Decision Making CBC and CMP grossly unremarkable. I discussed results with patient and offered him IV Thorazine. Patient states he already has this at home and requests to leave stating he just wanted to make sure that he was not dehydrated. He is stable for discharge home. Critical care attestation.: If time is entered above; I have spent that time in minutes in the direct care of this critically ill patient, excluding procedure time. ED Disposition Clinical Impression: Chronic hiccups Disposition: 01 HOME / SELF CARE / HOMELESS Is pt being admited?: No Condition: Stable Referrals: PRIMARY CARE, [Primary Care Provider] - 3-5 Days
[2021-11-30 21:41] VITALS: BP 180/102
== END 2021-11-30 21:42 | disposition home or self-care (01) ==
LOC: ED 19:06
DX: R06.6 Hiccough (principal); I10 Essential (primary) hypertension; I21.9 Acute myocardial infarction, unspecified; K21.9 Gastro-esophageal reflux disease without esophagitis; N28.9 Disorder of kidney and ureter, unspecified; J45.909 Unspecified asthma, uncomplicated; Z13.30 Encounter for screening examination for mental health and behavioral disorders, unspecified; Z98.890 Other specified postprocedural states; Z91.010 Allergy to peanuts; Z79.899 Other long term (current) drug therapy
CPT/HCPCS: 36415; 80053; 85025; 96374; 99284; J0360